=== PATIENT | female | born 1950 | race Caucasian/White ===

== ENCOUNTER 2021-12-05 10:00 | Outpatient (RCR) | payer MEDICARE, BC, SELFPAY | END 2022-10-17 23:59 | disposition home or self-care (01) | PROVIDERS: PCP Family Medicine; Visit Provider Physician Assistant | DX: S72.414D Nondisplaced unspecified condyle fracture of lower end of right femur, subsequent encounter for closed fracture with routine healing (principal); Z51.89 Encounter for other specified aftercare | CPT/HCPCS: 97110; 97161 ==

== ENCOUNTER 2022-01-28 09:04 | Day surgery (SDC) | payer MEDICARE, BC, SELFPAY ==
[2022-01-28] VITALS (20 sets, daily range): BP systolic 98–143; BP diastolic 53–80; PULSE 63–89; RESP 16–18; TEMP 35.2–36.9; O2SAT 89–99; BMI 28.8
[2022-01-28] MEDS: MIDAZOLAM HCL 1 MG/ML inj IVP (07:48)
[2022-01-28] MEDS: LACTATED RINGERS 1000 ML 1,000 ML 100 ML IV (08:00)
[2022-01-28] MEDS: ACETAMINOPHEN 500 MG TABLET 1000 MG PO ×2 (09:30→18:33)
[2022-01-28] MEDS: OXYCODONE (CR) 10 MG TAB.ER.12H PO (09:31)
[2022-01-28] MEDS: CELECOXIB 200 MG CAPSULE PO (09:31)
[2022-01-28] MEDS: fentaNYL 100 MCG/2 ML inj IVP (10:20)
--- NOTE | 2022-01-28 10:30 | SUR.PREOP ---
TIME?OUT:?1022 PT/RN/MDA?VERIFICATION?OF?SURGICAL?SITE,?PROCEDURE,?AND?CONSENT OBTAINED?PRIOR?TO?INVASIVE?PROCEDURE.RIGHT KNEE
--- NOTE | 2022-01-28 10:40 | CRLHL7_ITS ---
For Patients: As a result of the Cures Act, medical imaging exams and procedure reports are released immediately into your electronic medical record. You may view this report before your referring provider. If you have questions, please contact your health care provider. Indication: POST OP RIGHT MILDRED Technique: Two views right knee Findings/Impression: Hardware from a right total knee arthroplasty is in satisfactory position. Bone alignment is normal. No sign of acute fracture. Postop changes are within normal limits. Dictated by Sam Mathis MD @ 01/29/2022 9:02:57 AM (Electronically Signed)
[2022-01-28] MEDS: CEFAZOLIN 2 GM in 0.9 % SODIUM CHLORIDE Mini-bag 100 ML IVPB (10:45)
--- NOTE | 2022-01-28 10:54 | P.NB_ITS ---
Nerve Block Nerve Block Date Seen: 01/28/22 Type of block requested by surgeon for post-operative analgesia: adductor canal Side: right Time out performed: Yes Verification of patient name: Yes Verification of date of : Yes Site marking: site marked Name of person performing procedure: Inderjit De Santiago, if any: Christy Continuous monitoring Was continuous monitoring of O2 sat, B/P, registered nurse cardiac, recorded every 15 minutes?: Yes Procedure Checklist: sterile prep, needles and gloves Ultrasound guided. Images saved: Yes Medications given in 5ml increments after negative aspiration: Ropivicaine %: 0.5 mL: 20 Needle gauge: 20 Decadron (mg): 10 Precedex (mcg): 25 Patient tolerated procedure well: Yes Additional comments: Needle noted adjacent to nerve Block Charges Block Charge (with Pro Fee): Femoral Nerve Use of Ultrasound Machine for Block: Yes- US Guidance/pain block
--- NOTE | 2022-01-28 10:55 | P.NB_ITS ---
Nerve Block Nerve Block Date Seen: 01/28/22 Type of block requested by surgeon for post-operative analgesia: geniculars Side: right Time out performed: Yes Verification of patient name: Yes Verification of date of : Yes Site marking: site marked Name of person performing procedure: Inderjit Continuous monitoring Was continuous monitoring of O2 sat, B/P, cardiac cath lab technologist, recorded every 15 minutes?: Yes Procedure Checklist: sterile prep, needles and gloves Medications given in 5ml increments after negative aspiration: Ropivicaine %: 0.5 mL: 9 Needle gauge: 25 Patient tolerated procedure well: Yes Block Charges Block Charge (with Pro Fee): Genicular Nerve Block Use of Ultrasound Machine for Block: No
--- NOTE | 2022-01-28 12:02 | PM.ORPRC ---
Procedure Note Date of procedure: 01/28/22 Procedure: PREOPERATIVE DIAGNOSIS: 1. Right knee recurrent instability causing multiple falls due to chronic ACL remote tear/deficiency POSTOPERATIVE DIAGNOSIS: 1. Right knee recurrent instability causing multiple falls due to chronic ACL remote tear/deficiency PROCEDURE: 1. Right total knee arthroplasty SURGEON: Onesimo Sandoval MD. MANAGER EMPLOYEE BENEFITS: Abhi Johnson PA-C - Of note, a skilled sales service assistant was critical for this case to aid in patient positioning, tissue retraction, limb manipulation/positioning, and closure. ANESTHESIA: General endotracheal anesthetic IMPLANTS: DePuy J&J all cemented TKA - Attune PS femur size 6 narrow, size 5 tibia, 5 poly spacer, 35 mm patella TOURNIQUET: 90 min at 300 torr EBL: 50 ml COMPLICATIONS: None evident INDICATIONS: The patient is a pleasant 71-year-old female who has experienced severe right knee recurrent instability. This is related to remote ACL tear/deficiency. She has tried extensive nonoperative management including physical therapy, bracing, activity modification, etc. all without great long-term relief. She continues to have recurrent instability to this right knee. This is caused her to fall down stairs and fall while on ground level putting her risk to other injuries. We had a lengthy discussion regarding her findings acknowledging that her arthritis is not extreme, but given the recurrent instability in her age, nonoperative management has failed and thus surgery was indicated. FINDINGS: Complete ACL absence. PCL was intact. Grade 3 chondromalacia medial femoral condyle and medial tibial plateau. Some degenerative medial meniscus tearing noted. No loose bodies evident. DESCRIPTION OF PROCEDURE: Following a thorough discussion of risks, benefits, and alternatives consent was obtained and the right knee was marked. The patient was brought to the operating room and placed supine on the operating table. Induction of anesthesia was undertaken. 1 g IV Ancef and 1 g tranexamic acid was administered within 1 hr of incision preoperatively. Proper time-out was performed identifying proper patient, site, procedure. The operative extremity was prepped and draped in the appropriate sterile fashion using ChloraPrep after the patient was positioned supine with all bony prominences well padded. A longitudinal, anterior, midline skin incision was made starting approximately 3cm proximal to the superior pole of the patella and advanced distal to the tibial tubercle. A median parapatellar arthrotomy was created. A medial subperiosteal sleeve was created with knife, treadwell elevator and curved osteotome. The retropatellar fatpad was resected and the synovium in the suprapatellar pouch excised to visualize the anterior femoral cortex. Femoral preparation was performed via an intramedullary guide. Step drill allowed access into the femoral canal. The distal cutting guide was placed with 6 ? of valgus and 11 mm cut on the distal femur. Femur was sized using a posterior referencing guide in 3? of external rotation. This found have a best fit with the sizing noted above. The 4 in 1 cutting block was then placed, and the distal femur shaped accordingly. The box cut was then created and the trial implant inserted to confirm appropriate fit. We turned our attention to the proximal tibia. Extramedullary guide was utilized for cutting with the goal of being 90 degree cut from the mechanical axis of the tibia in the varus/valgus plane utilizing tibial crest as the primary alignment. Initially a 3 mm resection was performed from the medial tibial plateau. Ultimately, balancing was achieved in both flexion and extension in both varus and valgus. The knee was able to achieve full extension as well comfortably. The patella was initially measured and found have a thickness of 24 mm. It was resected back to approximately 14.5 mm. It was sized to be a best fit with as noted above. This was drilled, trial placed. All trials were placed and found to have an excellent stability and balance. At this stage, trial implants were removed, the knee was thoroughly irrigated with normal saline, and the cement was mixed. After irrigation, the knee was thoroughly dried, and cement placed, with the real tibial and femoral implants placed along with the patella. Trial poly spacer was placed and confirmed to have excellent range of motion and full extension, and the real poly spacer opened and inserted. All extra cement was removed, and a 3 min Betadine soak performed. Finally, a final irrigation round with normal saline was performed. Closure performed with 0 Vicryl and #0 Stratafix for the quad tendon/retinaculum. 2-0 Vicryl for the subcutaneous and 4-0 Stratafix for subcuticular closure. Dressings were applied and the patient was awoken from anesthesia after the tourniquet deflated and transferred the PACU in stable condition. A skilled sales service assistant was critical for this case to aid in patient positioning, tissue retraction, bone exposure, limb manipulation/positioning, patient safety, and closure. PLAN: 1. Weight bear as tolerated operative extremity. 2. 23 hr perioperative antibiotics. 3. Ice. 4. PT/OT consults for ambulation assistance/mobility education. 5. Social work consult for discharge planning. 6. DVT prophylaxis with at SCDs, Kishor Cain, and aspirin twice daily.
--- NOTE | 2022-01-28 12:48 | W.ANESCHARGE ---
Anesthesia Charges Start Date/Time Anesthesia Start Date: 01/28/22 Anesthesia Start Time: 10:34 Stop Date/Time Anesthesia Stop Date: 01/28/22 Anesthesia Stop Time: 12:47 Summary Emergency: No
--- NOTE | 2022-01-28 13:20 | W.ANESCHARGE ---
Anesthesia Charges Start Date/Time Anesthesia Start Date: 01/28/22 Anesthesia Start Time: 10:34 Stop Date/Time Anesthesia Stop Date: 01/28/22 Anesthesia Stop Time: 12:47 Summary Emergency: No Extremes of Age: Over 69-CPT [id number]
[2022-01-28] MEDS: LACTATED RINGERS 1000 ML 1,000 ML 75 ML IV (13:39)
[2022-01-28] MEDS: HYDROmorphone 0.5 mg/0.5 ml inj IVP ×2 (13:45→15:10)
--- NOTE | 2022-01-28 14:45 | PM.IMCN1 ---
Date of Consult Consult date: 01/28/22 Primary Care Provider: Samantha Catalan, Consult Narrative Narrative: Edith Cruz is a 71 year old female who presented to the hospital today for an elective R TKA. There were no surgical or anesthetic complications noted during procedure. Patient's H&P reviewed, PCP is Dr. Catalan at the [facility]. Past medical history significant for: hyperlipidemia and allergic rhinitis. History of blood clots: no Postoperative plan: Home with in [place]. Edith has been for 50+ years, she smoked when younger, quit in her 30s (approximate 10 pack year history). Review of Systems Status of ROS: Reports: 10 or more systems reviewed and unremarkable except as noted in History and below [facility] Medical History (Updated 01/14/22 @ 11:17 by Asia Rodriguez RN) Allergic rhinitis Cholecystitis Colitis due to Clostridioides difficile Diarrhea Elevated cholesterol Pyelonephritis Seborrheic dermatitis, unspecified Sensorineural hearing loss, asymmetrical Varicose veins of both lower extremities Surgical History (Updated 01/28/22 @ 14:48 by Yu Galeana MD) History of bunionectomy of both great toes History of cholecystectomy S/P right knee arthroscopy (01/05/13) Status post laparoscopic appendectomy Total knee replacement status Family History (Updated 01/14/22 @ 11:26 by Asia Rodriguez RN) Father Waldenstroms macroglobulinemia Mother Amyloidosis Social History (Updated 01/14/22 @ 11:30 by Asia Rodriguez RN) Highest level of school completed/degree received: Associate degree: occupational, technical, vocational program Smoking Status: Former smoker What tobacco products do you use: cigarettes Years smoked: 18 Smoking quit date/years: >15 years ago Do you use any of these nicotine containing products: None Nicotine containing products detail: Quit smoking in 1985 Second hand tobacco smoke exposure: No How often do you have a drink containing alcohol: 2-3 times a week Alcohol type: wine How many standard drinks containing alcohol do you have on a typical day: 1 or 2 How often do you have six or more drinks on one occasion: Weekly AUDIT-C Alcohol total score: 6 Non-prescribed substance use: denies use Caffeine: Yes (coffee 1-2 per day, soda 1 can/day) Are you using contraception or practicing any form of control: No service: No Meds Home Medications and Allergies Home Medications Medication Instructions Recorded Confirmed Type atorvastatin 10 mg tablet 10 mg PO HS 01/02/22 01/28/22 History budesonide 32 mcg/actuation nasal 2 spray intranasal DAILY 01/02/22 01/25/22 History spray cetirizine 10 mg tablet 10 mg PO DAILY PRN 01/02/22 01/28/22 History metronidazole 0.75 % topical gel 1 applic topical BID 01/02/22 01/25/22 History multivitamin 1 tab PO DAILY 01/02/22 01/28/22 History ascorbic acid (vitamin C) 500 mg 500 mg PO BID 01/25/22 01/28/22 History capsule,extended release calcium citrate 315 mg-vitamin D3 1 tab PO DAILY 01/25/22 01/28/22 History 5 mcg (200 unit) tablet (Calcium Citrate + D) Allergies Allergy/AdvReac Type Severity Reaction Status Date / Time No Known Drug Allergies Allergy Verified 01/28/22 10:28 Exam Narrative: Exam Narrative: GEN: Alert and oriented, speaking in full sentences, nontoxic in appearance. Laying comfortably in bed HEENT: Normal external ears, EOMIs bilaterally, no scleral icterus CV: RRR, No concerning murmurs, rubs, or gallops R: LCTA bilaterally without concerning wheezing, rales, or rhonchi, air movement adequate Ext: wwp, no concerning edema Skin: No concerning skin lesions or rashes on exposed skin Neuro: Nonfocal Psych: Appropriate Const: Vital Signs, click to edit/add: Vital Signs - 24 hr 01/28/22 10:15 01/28/22 12:50 01/28/22 12:55 Temperature 98.4 F 97.2 F L Pulse Rate 78 63 64 Respiratory Rate 18 16 16 Blood Pressure 143/79 H 106/57 L 98/53 L Pulse Oximetry 96 93 91 Oxygen Delivery Me thod Room Air Room Air Room Air 01/28/22 13:00 01/28/22 13:05 01/28/22 13:10 Temperature Pulse Rate 64 75 69 Respiratory Rate 16 16 16 Blood Pressure 98/54 L 114/70 117/66 Pulse Oximetry 92 96 96 Oxygen Delivery Me thod Room Air Room Air Room Air 01/28/22 13:15 01/28/22 13:20 Temperature Pulse Rate 79 78 Respiratory Rate 16 16 Blood Pressure 120/71 126/73 Pulse Oximetry 96 95 Oxygen Delivery Me thod Room Air Room Air Assessment and Plan Assessment and plan (1) Total knee replacement status: Status: Acute Assessment and Plan: Pain management and prophylaxis per orthopedic surgery team. Stable comorbidities, as noted above. Continue home medications. Hospitalist team will follow throughout stay. (2) Osteoarthritis of right knee: Problem comment: Mild-moderate Status: Acute Plan - per above
[2022-01-28] MEDS: ONDANSETRON 2 MG/ML inj 4 MG IVP ×2 (15:10→18:53)
[2022-01-28] MEDS: CEFAZOLIN 1 GM in 0.9 % SODIUM CHLORIDE Mini-bag 100 ML IVPB (16:29)
--- NOTE | 2022-01-28 19:48 | PC.NURSE ---
shift note: pt returned to rm 259 from pacu via bed. pt drowsy on first arrival. post op vss initiated per protocol. Rt knee drsg c/d/i. cryo cuff on rt knee. cms intact. PP+ bilat. pt using IS to [id number]. LS clr. Pt having pain 3-5/10 in rt knee. pt medicated with dilaudid x2. pt had small clr emesis and received zofran with relief. pt tried to eat supper but had another emesis of 400cc. pt received another dose of prn zofran. family at bedside. IV patent.
[2022-01-29] MEDS: ACETAMINOPHEN 500 MG TABLET 1000 MG PO ×2 (00:15→06:09)
[2022-01-29] MEDS: ONDANSETRON 2 MG/ML inj 4 MG IVP (00:16)
[2022-01-29] MEDS: CEFAZOLIN 1 GM in 0.9 % SODIUM CHLORIDE Mini-bag 100 ML IVPB ×2 (00:25→09:36)
[2022-01-29] MEDS: PROCHLORPERAZINE 5 MG/ML VIAL IVP (02:00)
[2022-01-29] MEDS: HYDROmorphone 2 MG TABLET PO ×3 (02:47→10:12)
[2022-01-29] MEDS: LORazepam 0.5 MG TABLET PO (02:52)
[2022-01-29] MEDS: LACTATED RINGERS 1000 ML 1,000 ML 75 ML IV (02:52)
[2022-01-29 03:00] VITALS: BP 117/64; PULSE 64; RESP 16; TEMP 36.6; O2SAT 99
--- NOTE | 2022-01-29 03:28 | PC.NURSE ---
Shift note 23-: Pt is pleasant. A&O. Afebrile, oxygen saturations >90% on RA. Denies SOB, CP. Pt with intermittent nausea, no emesis this shift, PRN medication given see eMAR. Pt reports some relief, pt able to eat a few crackers. Surgical dressing is C/D/I, CMS intact, cryocuff in place. PRN oral Dilaudid given x1.
[2022-01-29] MEDS: HYDROmorphone 0.5 mg/0.5 ml inj IVP ×2 (06:21→07:19)
[2022-01-29 06:53] LABS: Hematocrit 35.8 % (33.0-51.0); Hemoglobin* 11.3 gm/dL (12.0-16.0); Immature Granulocytes Abs Auto 0.01 K/uL (0.00-0.30); Lymphocytes Percent Auto 10.7 % (20-44); Mean Corpuscular HGB Conc 32 gm/dL (32-36); Mean Corpuscular Hemoglobin 28 pg (26-34); Mean Corpuscular Volume 88 fL (80-100); Monocytes Percent Auto 9.3 % (0.0-11.0); Neutrophils Percent Auto 79.9 % (42.0-72.0); Platelet Count* 627 K/uL (140-440); RDW Coefficient of Variation % 12.8 % (11.5-15.5); Red Blood Count 4.06 m/uL (4.00-5.20)
[2022-01-29 06:55] LABS: Slide Review Reflex No
[2022-01-29 07:00] VITALS: BP 119/64; PULSE 69; RESP 12; TEMP 36.6; O2SAT 97
[2022-01-29 07:15] LABS: Potassium* 4.7 mmol/L (3.6-5.1); Sodium* 140 mmol/L (135-149)
[2022-01-29 07:18] LABS: Blood Urea Nitrogen* 15 mg/dL (7-30); Creatinine* 0.8 mg/dL (0.5-1.5); Est. Creatinine Clearance* 42.07; Estimated Glomerular Filt Rate 78 ml/min
--- NOTE | 2022-01-29 08:02 | PM.ORPN ---
Subjective Subjective Date Seen: 01/29/22 Principal diagnosis: Status postop day 1 right total knee arthroplasty Interval history: Patient reports doing well. Acute events overnight include nausea and vomiting; patient states that this is common for her postoperatively, with her most recent appendectomy surgery 1 year ago experiencing similar postoperative nausea/vomiting. Today, the nausea has subsided remarkably and she is able to tolerate small amounts of food. She plans to eat breakfast this morning. Pain managed with scheduled /PRN medications and ice. DVT prophylaxis 81 mg aspirin by mouth twice daily, bilateral knee high Kishor stockings, and SCDs. Denies fevers, chills, aches, N/V, CP, SOB/SHEPHERD, tachycardia, or lightheadedness. Ortho Exam Narrative Exam Narrative: -Patient appears comfortable; no apparent acute distress. She is just waking up. Reports having a good night of sleep -Alert and oriented times 3 -Operative knee mildly swollen; soft tissues supple; no ecchymosis; no erythematous streaking Warmth appropriate -Surgical dressing clean, dry, intact; no drainage -Bilateral calfs soft; no significant swelling, edema, tenderness, erythema, discoloration, warmth, or palpable cords -2+ DP/PT pulses, intact dermatomes and myotomes distally (5/5 strength) Const Vital Signs, click to edit/add: Vital Signs - 24 hr 01/28/22 10:15 01/28/22 12:50 01/28/22 12:55 Temperature 98.4 F 97.2 F L Pulse Rate 78 63 64 Pulse Rate [Right Pulse Oximeter] Respiratory Rate 18 16 16 Blood Pressure 143/79 H 106/57 L 98/53 L Blood Pressure [Left Arm] Pulse Oximetry 96 93 91 Oxygen Delivery Method Room Air Room Air Room Air 01/28/22 13:00 01/28/22 13:05 01/28/22 13:10 Temperature Pulse Rate 64 75 69 Pulse Rate [Right Pulse Oximeter] Respiratory Rate 16 16 16 Blood Pressure 98/54 L 114/70 117/66 Blood Pressure [Left Arm] Pulse Oximetry 92 96 96 Oxygen Delivery Method Room Air Room Air Room Air 01/28/22 13:15 01/28/22 13:20 01/28/22 14:42 Temperature 95.8 F L Pulse Rate 79 78 Pulse Rate [Right Pulse Oximeter] 89 Respiratory Rate 16 16 18 Blood Pressure 120/71 126/73 Blood Pressure [Left Arm] 140/80 H Pulse Oximetry 96 95 95 Oxygen Delivery Method Room Air Room Air Room Air 01/28/22 13:30 01/28/22 13:30 01/28/22 14:00 Temperature 95.8 F L 95.8 F L 95.8 F L Pulse Rate 78 Pulse Rate [Right Pulse Oximeter] 89 80 Respiratory Rate 18 18 16 Blood Pressure Blood Pressure [Left Arm] 140/80 H 140/80 H 129/70 Pulse Oximetry 95 99 Oxygen Delivery Method Room Air Room Air Room Air 01/28/22 13:45 01/28/22 14:15 01/28/22 14:30 Temperature 95.4 F L 95.8 F L 95.8 F L Pulse Rate Pulse Rate [Right Pulse Oximeter] 78 77 77 Respiratory Rate 16 16 16 Blood Pressure Blood Pressure [Left Arm] 131/67 127/75 124/64 Pulse Oximetry 99 92 92 Oxygen Delivery Method Room Air Room Air Room Air 01/28/22 15:00 01/28/22 15:30 01/28/22 16:30 Temperature 95.9 F L 97.1 F L 97.1 F L Pulse Rate Pulse Rate [Right Pulse Oximeter] 79 79 74 Respiratory Rate 16 18 18 Blood Pressure Blood Pressure [Left Arm] 118/66 131/74 120/70 Pulse Oximetry 92 92 92 Oxygen Delivery Method Room Air Room Air Room Air 01/28/22 17:30 01/28/22 18:30 01/28/22 23:00 Temperature 97.1 F L 97.2 F L Pulse Rate Pulse Rate [Right Pulse Oximeter] 77 70 75 Respiratory Rate 18 18 Blood Pressure Blood Pressure [Left Arm] 116/64 109/60 Pulse Oximetry 89 97 Oxygen Delivery Method Room Air Room Air 01/28/22 23:00 01/29/22 03:00 Temperature 97.5 F L 97.8 F Pulse Rate Pulse Rate [Right Pulse Oximeter] 75 64 Respiratory Rate 18 16 Blood Pressure Blood Pressure [Left Arm] 130/63 117/64 Pulse Oximetry 91 99 Oxygen Delivery Method Room Air Room Air Assessment and Plan Assessment and plan (1) Total knee replacement status: Problem details: POD 1 right total knee arthroplasty Status: Acute (2) Chronic instability of knee, right knee: Status: Acute (3) Osteoarthritis of right knee: Problem details: Mild-moderate Status: Acute Plan - Complete 23 hour perioperative antibiotics. - PT/OT consult for education and assistance. - Social work consult for discharge planning - Prescribed analgesics as needed - oral hydromorphone - DVT prophylaxis: 81 mg aspirin by mouth twice daily, bilateral knee high Kishor Hose stockings and SCDs - Anticipation is for discharge to home with spouse 01/29/2022 if the patient remains medically stable, pain is controlled, and they are safe with mobilization.
--- NOTE | 2022-01-29 08:06 | P.DS_ITS ---
DS: Providers Provider Date Seen: 01/29/22 Date of admission: med/surg recovery Primary care physician: Samantha Catalan DO Consults: 01/28/22 13:22 Consult to Occupational Therapy [CONS] Routine Comment: Reason(s) for OT Consult:: ADLs Prior to Discharge Any Restrictions?:: See Comment Comment: See nursing activity order for any restrictions. Consult to Physical Therapy [CONS] Routine Comment: Ambulate in the ball today. Reason(s) for PT Consult:: TKA TX Protocol POD#0 Any Restrictions?:: See Comment Comment: See nursing activity order for any restrictions. Consult to Physician [CONS] Routine Comment: Consulting Provider: Hospitalists Has provider been notified: No Consult to Sports Equipment Supervisor [CONS] Routine Comment: Reason for Consult:: Discharge Planning Needs Attending Physician on discharge: Onesimo Sandoval MD Date of Discharge: 01/29/22 DS: Diagnosis Discharge Diagnosis (1) Chronic instability of knee, right knee: Status: Acute (2) Total knee replacement status: Status: Acute Problem details: POD 1 right total knee arthroplasty DS: Summary Hospital Course Hospital Course: The patient has a history of right knee chronic ACL deficiency, mild osteoarthritis. After appropriate preoperative evaluation, the patient underwent right total knee arthroplasty. Postoperatively given anticoagulation for deep vein thrombosis prophylaxis. They progressed to PT/OT and were felt ready and prepared for discharge to home with appropriate pain medication and anticoagulation medications. Postoperative nausea and vomiting improved. Status at Discharge Functional status at discharge: uses cane/walker Overall status at discharge: patient is progressing back to baseline Time Spent with Patient Time attestation: Total time spent providing and/or coordinating discharge services: Time spent: Less than 30 minutes Exam Const: Vital Signs, click to edit/add: Vital Signs - 24 hr 01/28/22 10:15 01/28/22 12:50 01/28/22 12:55 Temperature 98.4 F 97.2 F L Pulse Rate 78 63 64 Pulse Rate [Right Pulse Oximeter] Respiratory Rate 18 16 16 Blood Pressure 143/79 H 106/57 L 98/53 L Blood Pressure [Le ft Arm] Pulse Oximetry 96 93 91 Oxygen Delivery Me thod Room Air Room Air Room Air 01/28/22 13:00 01/28/22 13:05 01/28/22 13:10 Temperature Pulse Rate 64 75 69 Pulse Rate [Right Pulse Oximeter] Respiratory Rate 16 16 16 Blood Pressure 98/54 L 114/70 117/66 Blood Pressure [Le ft Arm] Pulse Oximetry 92 96 96 Oxygen Delivery Me thod Room Air Room Air Room Air 01/28/22 13:15 01/28/22 13:20 01/28/22 14:42 Temperature 95.8 F L Pulse Rate 79 78 Pulse Rate [Right Pulse Oximeter] 89 Respiratory Rate 16 16 18 Blood Pressure 120/71 126/73 Blood Pressure [Le ft Arm] 140/80 H Pulse Oximetry 96 95 95 Oxygen Delivery Me thod Room Air Room Air Room Air 01/28/22 13:30 01/28/22 13:30 01/28/22 14:00 Temperature 95.8 F L 95.8 F L 95.8 F L Pulse Rate 78 Pulse Rate [Right Pulse Oximeter] 89 80 Respiratory Rate 18 18 16 Blood Pressure Blood Pressure [Le ft Arm] 140/80 H 140/80 H 129/70 Pulse Oximetry 95 99 Oxygen Delivery Me thod Room Air Room Air Room Air 01/28/22 13:45 01/28/22 14:15 01/28/22 14:30 Temperature 95.4 F L 95.8 F L 95.8 F L Pulse Rate Pulse Rate [Right Pulse Oximeter] 78 77 77 Respiratory Rate 16 16 16 Blood Pressure Blood Pressure [Le ft Arm] 131/67 127/75 124/64 Pulse Oximetry 99 92 92 Oxygen Delivery Me thod Room Air Room Air Room Air 01/28/22 15:00 01/28/22 15:30 01/28/22 16:30 Temperature 95.9 F L 97.1 F L 97.1 F L Pulse Rate Pulse Rate [Right Pulse Oximeter] 79 79 74 Respiratory Rate 16 18 18 Blood Pressure Blood Pressure [Le ft Arm] 118/66 131/74 120/70 Pulse Oximetry 92 92 92 Oxygen Delivery Me thod Room Air Room Air Room Air 01/28/22 17:30 01/28/22 18:30 01/28/22 23:00 Temperature 97.1 F L 97.2 F L Pulse Rate Pulse Rate [Right Pulse Oximeter] 77 70 75 Respiratory Rate 18 18 Blood Pressure Blood Pressure [Le ft Arm] 116/64 109/60 Pulse Oximetry 89 97 Oxygen Delivery Me thod Room Air Room Air 01/28/22 23:00 01/29/22 03:00 Temperature 97.5 F L 97.8 F Pulse Rate Pulse Rate [Right Pulse Oximeter] 75 64 Respiratory Rate 18 16 Blood Pressure Blood Pressure [Le ft Arm] 130/63 117/64 Pulse Oximetry 91 99 Oxygen Delivery Me thod Room Air Room Air DS: Data Data Completed and Pending Labs on day of discharge: Labs from last 24 hours 01/29/22 01/29/22 06:26 06:26 WBC 8.90 RBC 4.06 Hgb 11.3 L Hct 35.8 MCV 88 MCH 28 MCHC 32 RDW Coeff of Robert 12.8 Plt Count 627 H Neut % (Auto) 79.9 H Lymph % (Auto) 10.7 L [place] % (Auto) 9.3 Eos % (Auto) 0.0 Baso % (Auto) 0.0 Neut # (Auto) 7.10 H Lymph # (Auto) 1.00 [place] # (Auto) 0.80 Eos # (Auto) 0.00 Baso # (Auto) 0.00 Abs Immat Gran (auto) 0.01 Sodium 140 Potassium 4.7 BUN 15 Creatinine 0.8 Estimated Creat Clear 42.07 Estimated GFR 78 Discharge Plan Discharge Disposition: Home, Self-Care Discharging Surgeon: Onesimo Sandoval Follow-Up Appointment: 1 week PO with MADELAINE Prescriptions: New aspirin 81 mg tablet,delayed release (DR/EC) 81 mg PO BID Qty: 60 0RF Rx Instructions: Medication to help prevent blood clots postoperatively; take TWICE daily. celecoxib 100 mg capsule 100 mg PO BID Qty: 60 0RF acetaminophen 500 mg capsule 500 - 1,000 mg PO Q6H MDD 4000mg PRNQty: 100 0RF sennosides-docusate sodium [Senna-S] 8.6-50 mg tablet 1 - 4 tab-cap PO BID PRN (Reason: constipation) Qty: 60 0RF Rx Instructions: Hold medication if experiencing loose stools. hydromorphone 2 mg tablet 2 - 4 mg PO Q4-6H MDD 6 PRN (Reason: pain) Qty: 30 0RF No Action atorvastatin 10 mg tablet 10 mg PO HS budesonide 32 mcg/actuation spray,non-aerosol 2 spray intranasal DAILY Label Comments: INSTILL 2 SPRAYS TO BOTH NOSTRILS ONCE DAILY metronidazole 0.75 % gel 1 applic topical BID multivitamin Tablet 1 tab PO DAILY cetirizine 10 mg tablet 10 mg PO DAILY PRN calcium citrate-vitamin D3 [Calcium Citrate + D] 315 mg-5 mcg (200 unit) tablet 1 tab PO DAILY ascorbic acid (vitamin C) 500 mg capsule, extended release 500 mg PO BID Activity Level: Activity as Tolerated, Weight Bearing as Tolerated, Use Cane and Use Walker Discharge Diet: Regular Patient Instructions: Surgical Site Infections (DC) Additional Instructions: Wound: ?Do not remove original dressing; we will remove this at first postop visit in 1 week. Only remove dressing if integrity is in question. ?No immersing wound in water; showering okay; light scrub with your hand and body soap, rinse, dab dry ?Sutures are under the skin, will dissolve; allow surgical glue to come off naturally; do not scrub the wound or apply ointments/lotions ?Call our office with any redness that streaks, excessive drainage from the wound, or wound gapping. Ice/Elevate: ?Ice as needed for swelling and discomfort (cryocuff or ice pack); elevate frequently above the heart CORONA socks: ?Wear for 1 month, remove for 1 hour 3 times per day ?These are frustrating to take on/off, but are important for blood clot prevention for 1 month after surgery Blood Clot Prevention (DVT): ?Medication: 81 mg aspirin by mouth twice daily (1 month) Driving: ?Do not drive while taking narcotic pain medication ?Anticipate 4-6 weeks no driving if operative leg is driving leg Dental: ?No elective dental work for 6 months post-op. If there is an urgent/emergent dental need, contact our office for an antibiotic prescription. Smoking/Alcohol: ?Do not smoke; do no drink alcohol especially when taking postoperative oral narcotic medication Seek Care from you Primary Care Provider if you experience the following issues in the postoperative phase and beyond: ?Bacterial infections such as: pneumonia, bacterial skin infection (cellulitis), UTI, high fever, chills unrelated to the operative body part - call your primary care physician urgently for treatment in hopes to protect your health and the metal implant. Referrals: ?PT, OT per patient preference - evaluate treat total knee arthroplasty protocol (gait training, ROM, ADLs) Follow up: ?Ortho surgeon follow-up in 6 weeks; repeat radiographs three views operative knee ?PA-C visit in 1 week *If there are any acute concerns regarding your surgery, please call our orthopedic clinic ([phone]) Forms: Work/Release Restrictions Follow-up: Samantha Catalan DO [Primary Care Provider] - Discharge Orders: Discharge Order (Routine); Ordered 01/29/22 Ordered By: Abhi Johnson
[2022-01-29] MEDS: CELECOXIB 200 MG CAPSULE PO (09:30)
[2022-01-29] MEDS: SENNOSIDES 1 TAB TABLET 2 TAB PO (09:31)
[2022-01-29] MEDS: ASPIRIN 81 MG TABLET EC PO (09:32)
--- NOTE | 2022-01-29 09:48 | P.DS_ITS ---
DS: Providers Provider Date Seen: 01/29/22 Primary care physician: Samantha Catalan DO Consults: PT, OT, SW, Hospitalist Attending Physician on discharge: Onesimo Sandoval MD Date of Discharge: 01/29/22 DS: Diagnosis Discharge Diagnosis (1) Total knee replacement status: Status: Acute Problem details: POD 1 right total knee arthroplasty DS: Summary Hospital Course Hospital Course: Edith is a 71-year-old female who presented to the hospital for an elective right TKA on 01/28. Patient did well postoperatively and comorbidities remained stable. She did have some nausea with narcotics; sent home Compazine, which was effective during hospital stay. No changes were made to home medications upon discharge. Prophylaxis and pain management per Orthopedic surgery team upon discharge. Patient will be discharged home with routine follow-up with therapies, orthopedic surgery, and PCP. Time Spent with Patient Time attestation: Total time spent providing and/or coordinating discharge services: Exam Narrative: Exam Narrative: GEN: Alert and oriented, speaking in full sentences HEENT: Normal external ears, EOMIs bilaterally CV: RRR, No concerning murmurs, rubs, or gallops R: LCTA bilaterally without concerning wheezing, rales, or rhonchi Ext: wwp, no concerning edema Skin: No concerning skin lesions or rashes on exposed skin Neuro: Nonfocal Psych: Appropriate Const: Vital Signs, click to edit/add: Vital Signs - 24 hr 01/28/22 10:15 01/28/22 12:50 01/28/22 12:55 Temperature 98.4 F 97.2 F L Pulse Rate 78 63 64 Pulse Rate [Right Pulse Oximeter] Respiratory Rate 18 16 16 Blood Pressure 143/79 H 106/57 L 98/53 L Blood Pressure [Le ft Arm] Pulse Oximetry 96 93 91 Oxygen Delivery Me thod Room Air Room Air Room Air 01/28/22 13:00 01/28/22 13:05 01/28/22 13:10 Temperature Pulse Rate 64 75 69 Pulse Rate [Right Pulse Oximeter] Respiratory Rate 16 16 16 Blood Pressure 98/54 L 114/70 117/66 Blood Pressure [Le ft Arm] Pulse Oximetry 92 96 96 Oxygen Delivery Me thod Room Air Room Air Room Air 01/28/22 13:15 01/28/22 13:20 01/28/22 14:42 Temperature 95.8 F L Pulse Rate 79 78 Pulse Rate [Right Pulse Oximeter] 89 Respiratory Rate 16 16 18 Blood Pressure 120/71 126/73 Blood Pressure [Le ft Arm] 140/80 H Pulse Oximetry 96 95 95 Oxygen Delivery Me thod Room Air Room Air Room Air 01/28/22 13:30 01/28/22 13:30 01/28/22 14:00 Temperature 95.8 F L 95.8 F L 95.8 F L Pulse Rate 78 Pulse Rate [Right Pulse Oximeter] 89 80 Respiratory Rate 18 18 16 Blood Pressure Blood Pressure [Le ft Arm] 140/80 H 140/80 H 129/70 Pulse Oximetry 95 99 Oxygen Delivery Me thod Room Air Room Air Room Air 01/28/22 13:45 01/28/22 14:15 01/28/22 14:30 Temperature 95.4 F L 95.8 F L 95.8 F L Pulse Rate Pulse Rate [Right Pulse Oximeter] 78 77 77 Respiratory Rate 16 16 16 Blood Pressure Blood Pressure [Le ft Arm] 131/67 127/75 124/64 Pulse Oximetry 99 92 92 Oxygen Delivery Me thod Room Air Room Air Room Air 01/28/22 15:00 01/28/22 15:30 01/28/22 16:30 Temperature 95.9 F L 97.1 F L 97.1 F L Pulse Rate Pulse Rate [Right Pulse Oximeter] 79 79 74 Respiratory Rate 16 18 18 Blood Pressure Blood Pressure [Le ft Arm] 118/66 131/74 120/70 Pulse Oximetry 92 92 92 Oxygen Delivery Me thod Room Air Room Air Room Air 01/28/22 17:30 01/28/22 18:30 01/28/22 23:00 Temperature 97.1 F L 97.2 F L Pulse Rate Pulse Rate [Right Pulse Oximeter] 77 70 75 Respiratory Rate 18 18 Blood Pressure Blood Pressure [Le ft Arm] 116/64 109/60 Pulse Oximetry 89 97 Oxygen Delivery Me thod Room Air Room Air 01/28/22 23:00 01/29/22 03:00 01/29/22 07:00 Temperature 97.5 F L 97.8 F Pulse Rate Pulse Rate [Right Pulse Oximeter] 75 64 69 Respiratory Rate 18 16 12 Blood Pressure Blood Pressure [Le ft Arm] 130/63 117/64 Pulse Oximetry 91 99 Oxygen Delivery Me thod Room Air Room Air 01/29/22 07:00 Temperature 97.8 F Pulse Rate Pulse Rate [Right Pulse Oximeter] 69 Respiratory Rate 12 Blood Pressure Blood Pressure [Le ft Arm] 119/64 Pulse Oximetry 97 Oxygen Delivery Me thod Room Air DS: Data Data Completed and Pending Labs on day of discharge: Labs from last 24 hours 01/29/22 01/29/22 06:26 06:26 WBC 8.90 RBC 4.06 Hgb 11.3 L Hct 35.8 MCV 88 MCH 28 MCHC 32 RDW Coeff of Robert 12.8 Plt Count 627 H Neut % (Auto) 79.9 H Lymph % (Auto) 10.7 L [place] % (Auto) 9.3 Eos % (Auto) 0.0 Baso % (Auto) 0.0 Neut # (Auto) 7.10 H Lymph # (Auto) 1.00 [place] # (Auto) 0.80 Eos # (Auto) 0.00 Baso # (Auto) 0.00 Abs Immat Gran (auto) 0.01 Sodium 140 Potassium 4.7 BUN 15 Creatinine 0.8 Estimated Creat Clear 42.07 Estimated GFR 78 Discharge Plan Discharge Disposition: Home, Self-Care Discharging Surgeon: Onesimo Sandoval Follow-Up Appointment: 1 week PO with MADELAINE Prescriptions: New aspirin 81 mg tablet,delayed release (DR/EC) 81 mg PO BID Qty: 60 0RF Rx Instructions: Medication to help prevent blood clots postoperatively; take TWICE daily. celecoxib 100 mg capsule 100 mg PO BID Qty: 60 0RF acetaminophen 500 mg capsule 500 - 1,000 mg PO Q6H MDD 4000mg PRNQty: 100 0RF sennosides-docusate sodium [Senna-S] 8.6-50 mg tablet 1 - 4 tab-cap PO BID PRN (Reason: constipation) Qty: 60 0RF Rx Instructions: Hold medication if experiencing loose stools. hydromorphone 2 mg tablet 2 - 4 mg PO Q4-6H MDD 6 PRN (Reason: pain) Qty: 30 0RF prochlorperazine maleate [Compazine] 5 mg tablet 5 mg PO BID PRNQty: 10 0RF Rx Instructions: prn nausea with pain meds No Action atorvastatin 10 mg tablet 10 mg PO HS budesonide 32 mcg/actuation spray,non-aerosol 2 spray intranasal DAILY Label Comments: INSTILL 2 SPRAYS TO BOTH NOSTRILS ONCE DAILY metronidazole 0.75 % gel 1 applic topical BID multivitamin Tablet 1 tab PO DAILY cetirizine 10 mg tablet 10 mg PO DAILY PRN calcium citrate-vitamin D3 [Calcium Citrate + D] 315 mg-5 mcg (200 unit) tablet 1 tab PO DAILY ascorbic acid (vitamin C) 500 mg capsule, extended release 500 mg PO BID Activity Level: Activity as Tolerated, Weight Bearing as Tolerated, Use Cane and Use Walker Discharge Diet: Regular Patient Instructions: Surgical Site Infections (DC) Additional Instructions: Wound: ?Do not remove original dressing; we will remove this at first postop visit in 1 week. Only remove dressing if integrity is in question. ?No immersing wound in water; showering okay; light scrub with your hand and body soap, rinse, dab dry ?Sutures are under the skin, will dissolve; allow surgical glue to come off naturally; do not scrub the wound or apply ointments/lotions ?Call our office with any redness that streaks, excessive drainage from the wound, or wound gapping. Ice/Elevate: ?Ice as needed for swelling and discomfort (cryocuff or ice pack); elevate frequently above the heart CORONA socks: ?Wear for 1 month, remove for 1 hour 3 times per day ?These are frustrating to take on/off, but are important for blood clot prevention for 1 month after surgery Blood Clot Prevention (DVT): ?Medication: 81 mg aspirin by mouth twice daily (1 month) Driving: ?Do not drive while taking narcotic pain medication ?Anticipate 4-6 weeks no driving if operative leg is driving leg Dental: ?No elective dental work for 6 months post-op. If there is an urgent/emergent dental need, contact our office for an antibiotic prescription. Smoking/Alcohol: ?Do not smoke; do no drink alcohol especially when taking postoperative oral narcotic medication Seek Care from you Primary Care Provider if you experience the following issues in the postoperative phase and beyond: ?Bacterial infections such as: pneumonia, bacterial skin infection (cellulitis), UTI, high fever, chills unrelated to the operative body part - call your primary care physician urgently for treatment in hopes to protect your health and the metal implant. Referrals: ?PT, OT per patient preference - evaluate treat total knee arthroplasty protocol (gait training, ROM, ADLs) Follow up: ?Ortho surgeon follow-up in 6 weeks; repeat radiographs three views operative knee ?MADELAINE visit in 1 week *If there are any acute concerns regarding your surgery, please call our orthopedic clinic ([phone]) Forms: Work/Release Restrictions Follow-up: Samantha Catalan DO [Primary Care Provider] - Abhi Johnson PA-C [Physician Employee Health Nurse] - 02/05/22 2:00 pm (At the [facility]& location. [phone]) Discharge Orders: Discharge Order (Routine); Ordered 01/29/22 Ordered By: Abhi Johnson
--- NOTE | 2022-01-29 12:06 | PC.NURSE ---
End of Shift: Patient pleasant and cooperative. Patient vitally stable, lungs clear, BS WNL, IV removed, catheter intact. Patient nausea has improved. Patient 1 assist, walker, gb. Patient rates pain at most 3/10, dilauded 4mg given once. Patient tolerating regular diet and urinating. Patient signed belongings sheet and discharge form. Patient had no further questions regarding discharge. Patient left the floor at 1112 by wheelchair with family and belongings.
== END 2022-01-29 11:12 | disposition home or self-care (01) ==
LOC: OR 09:05 → MEDSURG 01-29 05:13
PROVIDERS: PCP Family Medicine; Visit Provider Orthopaedic Surgery Sports Medicine
PROC: (CPT 27447; principal; 2022-01-28 10:45)
DX: M23.51 Chronic instability of knee, right knee (principal); M23.8X1 Other internal derangements of right knee; M94.261 Chondromalacia, right knee; M17.11 Unilateral primary osteoarthritis, right knee; M25.561 Pain in right knee
CPT/HCPCS: 27447; 01402; 36415; 64447; 64454; 73560; 76942; 82565; 84132; 84295; 84520; 85025; 97116; 97161; 97165; 97535; 99100; A9270; C1776; J0330; J0690; J0780; J1100; J1170; J2250; J2405; J2704; J2795; J3010; J7120

== ENCOUNTER 2022-03-05 10:30 | Outpatient (RCR) | payer MEDICARE, BC, SELFPAY ==
--- NOTE | 2022-01-14 16:34 | PT.OPEX ---
PT [place] Outpatient Eval PT [facility] Outpatient Eval Start: 01/14/22 09:55 Freq: Status: Active Protocol: Document 01/14/22 13:56 SLIME (Rec: 01/14/22 14:13 SLIME [id number]) E-signed By Ben Goddard PT Physical Therapy Outpatient Evaluation Insurance Information Insurance Name Medicare B,Blue Cross/Blue Shield Medical Diagnosis Right knee OA Treating Diagnosis Right knee instability Right quad weakness Referring MD Sandoval Subjective Subjective Pt. reports having worsening right knee instability symptoms with a fall in August sustaining an impaction fracture. She has tried to strengthen her knee with therapy but it continues to give out on her. She will be having a knee TKA on 01/28/22 and plans on coming her for her therapy afterwards. She lives with her in a split level home. She doesn't have any adaptive equipment in her home currently. She has full knee ROM with good but not normal strength in quad. She has never used an assistive device for ambulation but she needs to get a wheeled walker and a cane to have after surgery. Good overall health. Pain Comments none currently Date of Last Physician Visit 01/08/22 Date of Surgery (If applicable) 01/28/22 Current Work Status Retired Preferred Name Edith Objective Range of Motion Normal bilat. knee Strength 4/5 quad strength right Swelling none Balance & Gait WNL Assessment Assessment/Impression Objectively, pt. demonstrates; mild gait asymmetry with guarding of right knee; normal right knee AROM equal to left ; 4/5 right quad strength with mild weakness; normal hamstring strength; mild core deconditioning; and no apparent swelling of right LE. She will benefit from performing the pre-op exercise protocol prior to surgery. She will then benefit from skilled therapy after her surgery on 01/28/22 working on TKA protocol. Primary Functional Limitations walking, steps, hiking Plan of Care Rehabilitation Potential Excellent Physical Therapy Goals 1. Pt. will be indep. with HEP for self maintenance in 10-12 weeks 2. Pt. will be able to walk without an assistive device in 10-12 weeks 3. Pt. will demonstrate good quad strength for functional transfers in 10-12 weeks. 4. Pt. will demonstrate functional knee AROM with 115 degrees plus flexion with full extension for ADL's in 10-12 weeks. Coordination/Communication With Referral Source Treatment Plan/Direct Interventions Gait Training,Joint Mobilization,Manual Therapy, Neuromuscular Re-ed, Therapeutic Activities, Therapeutic Exercises Frequency/Duration one pre-op visit with re-eval and continued therapy S/P TKA. Patient Will Be Discharged From Therapy Independent w/HEP, Independently Progressing Evaluation Billing Complexity Low Certification Information Initial Certification Date 01/14/22 Ending Certification Date 04/08/22 Provider Signature Shows Agreement With POC & Medical Necessity Physician Signature & Date Requested Please Sign/Date Here Physician Comment/Change : Physician NPI Number #
== END 2022-03-05 13:14 | disposition home or self-care (01) ==
PROVIDERS: PCP Family Medicine; Visit Provider Orthopaedic Surgery Sports Medicine
DX: M17.11 Unilateral primary osteoarthritis, right knee (principal); Z51.89 Encounter for other specified aftercare
CPT/HCPCS: 97110; 97140; 97161; 97164

== ENCOUNTER 2024-03-10 17:26 | Inpatient (IN) | payer MEDICARE, BC, SELFPAY ==
[2024-03-10] VITALS (13 sets, daily range): BP systolic 102–115; BP diastolic 57–60; PULSE 77–105; RESP 18; TEMP 36.8–38.3; O2SAT 93–96; BMI 26.6; BMI 26.8
--- NOTE | 2024-03-10 18:45 | ED_ITS ---
HPI - General Adult General Date Seen: 03/10/24 Chief complaint: Abdominal Pain Stated complaint: Pain in Lower R abdominal quadrant, temp Time Seen by Provider: 03/10/24 18:21 History of Present Illness HPI narrative: 73-year-old female with a past medical history cholecystectomy, appendectomy, high cholesterol, history of pyelonephritis, history of C diff colitis, hearing loss, Presents to the ER today for right upper quadrant abdominal pain. Started befor e she woke up this morning. It started before breakfast and woke her up from sleep. She has been nauseous all day. No diarrhea. No trouble with bowel movements. She has also been having fevers and chills and body aches all day. No cough. No trouble breathing. No diarrhea. She has a history of C diff but no symptoms similar to that. No recent antibiotics. She has had previous cholecystectomy and appendectomy. Her right upper quadrant pain sometimes flares up and radiates through to her right flank. No clear exacerbating or alleviating symptoms. She had some urinary frequency earlier this week but is not having any ongoing urinary symptoms today. She politely declines any offered pain medications here in the ER. Related Data Home Medications ?Medication ?Instructions ?Recorded ?Confirmed atorvastatin 10 mg tablet 10 mg PO HS 01/02/22 03/10/24 metronidazole 0.75 % topical gel 1 applic topical BID 01/02/22 03/10/24 multivitamin 1 tab PO DAILY 01/02/22 03/10/24 calcium 315 mg (as 1 tab PO DAILY 01/25/22 03/10/24 citrate)-vitamin D3 5 mcg (200 unit) tablet (Calcium Citrate + D) Allergies Allergy/AdvReac Type Severity Reaction Status Date / Time No Known Drug Allergies Allergy Verified 03/10/24 17:52 [facility] Medical History (Updated 03/10/24 @ 21:44 by Manuel Moore MD) Health care directive on file ?Z78.9 - Other specified health status (ICD-10) Cholecystitis ?K81.9 - Cholecystitis, unspecified (ICD-10) Varicose veins of both lower extremities ?I83.93 - Asymptomatic varicose veins of bilateral lower extremities (ICD-10) Seborrheic dermatitis, unspecified ?L21.9 - Seborrheic dermatitis, unspecified (ICD-10) Sensorineural hearing loss, asymmetrical ?H90.3 - Sensorineural hearing loss, bilateral (ICD-10) Allergic rhinitis ?J30.9 - Allergic rhinitis, unspecified (ICD-10) Elevated cholesterol ?E78.00 - Pure hypercholesterolemia, unspecified (ICD-10) Pyelonephritis ?N12 - Tubulo-interstitial nephritis, not specified as acute or chronic (ICD- 10) Diarrhea ?R19.7 - Diarrhea, unspecified (ICD-10) Colitis due to Clostridioides difficile ?A04.72 - Enterocolitis due to Clostridium difficile, not specified as recurrent (ICD-10) Surgical History (Updated 07/23/22 @ 08:50 by Lucy Bar ~ [facility]) Total knee replacement status (01/28/22) ?Z96.659 - Presence of unspecified artificial knee joint (ICD-10) History of cholecystectomy ?Z90.49 - Acquired absence of other specified parts of digestive tract (ICD- 10) History of bunionectomy of both great toes ?Z98.890 - Other specified postprocedural states (ICD-10) S/P right knee arthroscopy (01/05/13) ?Z98.890 - Other specified postprocedural states (ICD-10) Status post laparoscopic appendectomy ?Z90.49 - Acquired absence of other specified parts of digestive tract (ICD- 10) Family History Father Waldenstroms macroglobulinemia Mother Amyloidosis Social History (Reviewed 07/23/22 @ 08:50 by Lucy Bar ~ [facility]) Highest level of school completed/degree received: Associate degree: occupational, technical, vocational program Smoking Status: Former smoker What tobacco products do you use: cigarettes Years smoked: 18 Smoking quit date/years: >15 years ago Do you use any of these nicotine containing products: None Nicotine containing products detail: Quit smoking in 1985 Second hand tobacco smoke exposure: No How often do you have a drink containing alcohol: never How many standard drinks containing alcohol do you have on a typical day: 1 or 2 How often do you have six or more drinks on one occasion: Never AUDIT-C Alcohol total score: 0 Non-prescribed substance use: denies use Caffeine: Yes (coffee 1-2 per day, soda 1 can/day) Are you using contraception or practicing any form of control: No service: No Exam Narrative: Exam Narrative: Constitutional: Appears well-developed and well-nourished. Alert. Conversant. Non toxic. HENT: Head: Atraumatic. Nose: Nose normal. Mouth/Throat: Oral mucosa is clear and moist. no trismus. Pharynx normal. Tonsils symmetric. No tonsillar enlargement, erythema, or exudate. Eyes: Conjunctivae normal. EOM normal. Pupils equal, round, and reactive to light. No scleral icterus. Neck: Normal range of motion. Neck supple. No tracheal deviation present. No meningismus. Cardiovascular: Normal rate, regular rhythm. No gallop. No friction rub. No murmur heard. Symmetric radial artery pulses Pulmonary/Chest: Effort normal. No stridor. No respiratory distress. No wheezes. Right basilar rales and rhonchi. No tenderness. Abdominal: Soft. Bowel sounds normal. No distension. No mass. Right upper quadrant > right CVA tenderness. Negative Quiros sign. No hepatomegaly. No lower abdominal tenderness. No left-sided tenderness. No Rovsing sign. No rebound. No guarding. Musculoskeletal: RUE: Normal range of motion. No tenderness. No deformity LUE: Normal range of motion. No tenderness. No deformity RLE: Normal range of motion. No edema. No tenderness. No deformity LLE: Normal range of motion. No edema. No tenderness. No deformity Neurological: Alert and oriented to person, place, and time. Normal strength. CN II-VII intact. No sensory deficit. GCS eye subscore is 4. GCS verbal subscore is 5. GCS motor subscore is 6. Normal coordination Skin: No shingles or bruising or rash on the right flank or abdomen. Skin is warm and dry. No rash noted. No pallor. Normal capillary refill. Psychiatric: Normal mood. Normal affect. Const: Vital Signs, click to edit/add: Vital Signs - 24 hr 03/10/24 17:46 03/10/24 19:10 03/10/24 20:31 Temperature 98.7 F 101.0 F H Pulse Rate 91 Pulse Rate [Right Pulse Oximeter] 105 H Respiratory Rate 18 Blood Pressure Blood Pressure [Le ft Upper Arm] 115/57 L Pulse Oximetry 96 93 Oxygen Delivery Me thod Room Air 03/10/24 20:45 03/10/24 21:00 03/10/24 21:01 Temperature Pulse Rate 94 90 90 Pulse Rate [Right Pulse Oximeter] Respiratory Rate Blood Pressure 102/60 Blood Pressure [Le ft Upper Arm] Pulse Oximetry 94 94 94 Oxygen Delivery Me thod 03/10/24 21:15 Temperature Pulse Rate 89 Pulse Rate [Right Pulse Oximeter] Respiratory Rate Blood Pressure Blood Pressure [Le ft Upper Arm] Pulse Oximetry 94 Oxygen Delivery Me thod Course Vital Signs Vital signs: Initial Vital Signs Temperature 98.7 F 03/10/24 17:46 Temperature Source Temporal Artery Scan 03/10/24 17:46 Pulse Rate 105 H 03/10/24 17:46 Pulse Rhythm Regular 03/10/24 17:46 Pulse Strength 3+ Normal 03/10/24 17:46 Respiratory Rate 18 03/10/24 17:46 Blood Pressure 115/57 L 03/10/24 17:46 Blood Pressure Mean 76 03/10/24 17:46 Blood Pressure Position Sitting 03/10/24 17:46 Pulse Oximetry 96 03/10/24 17:46 Oxygen Delivery Method Room Air 03/10/24 17:46 Vital Signs Temperature 98.7 F 03/10/24 17:46 Pulse Rate 105 H 03/10/24 17:46 Respiratory Rate 18 03/10/24 17:46 Blood Pressure 115/57 L 03/10/24 17:46 Pulse Oximetry 96 03/10/24 17:46 Oxygen Delivery Method Room Air 03/10/24 17:46 Temperature 101.0 F H 03/10/24 19:10 Pulse Rate 89 03/10/24 21:15 Respiratory Rate 18 03/10/24 17:46 Blood Pressure 102/60 03/10/24 21:01 Pulse Oximetry 94 03/10/24 21:15 Oxygen Delivery Method Room Air 03/10/24 17:46 Medications Administered Medications: Discontinued Medications Generic Name Dose Route Start Last Admin Trade Name Freq PRN Reason Stop Dose Admin Acetaminophen 1,000 mg 03/10/24 19:04 03/10/24 19:10 Acetaminophen 500 Mg Tablet PO 03/10/24 19:05 1,000 mg ONCE ONE Administration Ceftriaxone Sodium 1 gm/ 100 mls @ 200 mls/hr 03/10/24 19:41 03/10/24 21:22 Sodium Chloride IVPB 03/10/24 19:42 Infused ONCE ONE Infusion Azithromycin 500 mg/ Sodium 255 mls @ 255 mls/hr 03/10/24 20:01 03/10/24 21:47 Chloride IVPB 03/10/24 20:02 Infused ONCE ONE Infusion Sodium Chloride 500 mls @ 500 mls/hr 03/10/24 20:07 03/10/24 20:30 0.9 % Sodium Chloride 500 Ml IV 03/10/24 21:06 500 mls/hr .Q1H ONE Administration Medical Decision Making MDM Narrative Medical decision making narrative: Child presents for evaluation of fever, associated with predominantly right upper quadrant pain but also some right flank pain. Differential is broad. She is status post cholecystectomy and appendectomy. She does have a history of C diff triggered by IV antibiotics for her appendix years ago but no recent antibiotics. Concern is for possible pyelonephritis with her recent UTI symptoms. Urinalysis is mildly abnormal with 5-10 wbc's/HPF and positive leukocyte esterase. However urinalysis is not as markedly abnormal as we might expect for a active pyelonephritis. Will treat with Rocephin to cover her UTI. Urine culture pending. She also helps rales on her lung exam in the right base but has not had any recent cough, sore throat, or other respiratory symptoms. CT imaging does confirm a right middle lobe infiltrate suggestive for an infectious/inflammatory infiltrate. Will broaden antibiotic coverage with Azithromycin to cover for community-acquired pneumonia. No history of vomiting or aspiration. COVID and flu PCR are negative CT scan does not show any other abnormality in the abdomen or pelvis such as colitis, diverticulitis, perforation, abscess. LFTs and lipase are normal. No evidence for retained common bile duct stone. No jaundice to suggest cholangitis or hepatitis. No diarrhea to suggest gastroenteritis. No classic rash to suggest viral syndrome, shingles. No evidence for OM on exam. No pharyngitis. Differential for fever included cellulitis, septic arthritis, osteomyelitis but these are not seen on exam. She does meet criteria for sepsis because she presented with fever, tachycardia, leukocytosis. Although she presented with tachycardia and fever but his heart rate is down after Tylenol for fever. She is tolerating p.o. and feels better after an IV fluid bolus. Despite that she continues to feel quite weak. I had a long discussion with the patient and her about admission versus discharge. notes how much weaker than normal she has and strongly encouraging her stay. Ultimately she relates and will take advice. Discussed with our hospitalist, Dr. Fulton. She graciously accepts for admission. She request that I add on a venous lactic, venous blood gas, CRP level, procalcitonin level, urine Legionella and Streptococcus antigens and blood culture. She will follow-up on these test results. She accepts the patient for admission to the hospitalist service. Lab Data Labs: Lab Results 03/10/24 03/10/24 03/10/24 Range/Units 18:47 18:55 20:29 WBC 21.96 H (4.50-11.00) K/uL RBC 3.82 L (4.00-5.20) m/uL Hgb 10.6 L (12.0-16.0) gm/dL Hct 33.2 (33.0-51.0) % MCV 87 (80-100) fL MCH 28 (26-34) pg MCHC 32 (32-36) gm/dL RDW Coeff of Robert 13.4 (11.5-15.5) % Plt Count 572 H (140-440) K/uL Neut % (Auto) 87.4 H (42.0-72.0) % Lymph % (Auto) 4.6 L (20-44) % [place] % (Auto) 6.6 (0.0-11.0) % Eos % (Auto) 0.0 (0.0-7.0) % Baso % (Auto) 0.0 (0.0-3.0) % Neut # (Auto) 19.20 H (1.7-7.0) K/uL Lymph # (Auto) 1.00 (0.90-2.90) K/uL [place] # (Auto) 1.40 H (0.00-0.90) K/UL Eos # (Auto) 0.00 (0.00-0.50) K/uL Baso # (Auto) 0.00 (0.00-0.30) K/uL Abs Immat Gran (auto) 0.30 (0.00-0.30) K/uL Imm/Tot Granulo (auto) 1.4 % Sodium 135 (135-149) mmol/L Potassium 4.0 (3.6-5.1) mmol/L Chloride 105 (96-114) mmol/L Carbon Dioxide 24 (20-32) mmol/L Anion Gap 6 L (7-15) mEq/L BUN 19 (7-30) mg/dL Creatinine 0.8 (0.5-1.5) mg/dL Estimated Creat Clear 40.83 Estimated GFR 77 ml/min Glucose 122 H (60-115) mg/dL Calcium 8.9 (8.4-10.6) mg/dL Total Bilirubin 1.1 (0.1-1.5) mg/dL AST 33 (12-35) U/L ALT 25 (4-35) U/L Alkaline Phosphatase 57 (40-150) U/L Total Protein 6.3 (6.0-8.3) g/dL Albumin 4.0 (3.3-5.0) g/dL Lipase 61 (23-300) U/L Urine Color Yellow (Yellow) Urine Appearance Cloudy A (Clear) Urine pH 6.0 (5.0-8.5) Ur Specific [place] 1.020 (1.000-1.030) Urine Protein 1+ A (Negative) Urine Glucose (UA) Negative (Negative) Urine Ketones 1+ A (Negative) Urine Blood 1+ A (Negative) Urine Nitrite Negative (Negative) Urine Bilirubin Negative (Negative) Urine Urobilinogen 0.2 (0.2-1.0) Ur Leukocyte Esterase 1+ A (Negative) Urine RBC 0-2 (0-2) Urine WBC 5-10 A (0-5) Ur Squamous Epith Cells Moderate A (None-Few) Urine Bacteria Moderate A (None) SARS-CoV-2 (PCR) Negative SARS-CoV-2 (Negative) Influenza Type A (PCR) Negative PCR FLU A (Negative) Influenza Type B (PCR) Negative PCR FLU B (Negative) Imaging Data CT scan - abdomen: Attestation: I have reviewed the pertinent imaging results. Radiologist's impression: IMPRESSION: 1. New focal consolidation at the dependent portion of the right middle lobe, likely infectious/inflammatory. Recommend short interval follow-up low-dose noncontrast CT of the thorax such as within 6-8 weeks to assess for resolution. 2. Trace right pleural effusion. 3. No acute noncontrast findings in the abdomen or pelvis. 4. Several chronic and incidental findings are detailed above. Discharge Plan Discharge Clinical Impression: RLL pneumonia, Acute UTI, Weakness Prescriptions: No Action atorvastatin 10 mg tablet 10 mg PO HS metronidazole 0.75 % gel 1 applic topical BID multivitamin Tablet 1 tab PO DAILY calcium citrate-vitamin D3 [Calcium Citrate + D] 315 mg-5 mcg (200 unit) tablet 1 tab PO DAILY Follow Up/Referrals: Samantha Catalan DO [Primary Care Provider] -
--- NOTE | 2024-03-10 19:01 | CRLHL7_ITS ---
For Patients: As a result of the Century Cures Act, medical imaging exams and procedure reports are released immediately into your electronic medical record. You may view this report before your referring provider. If you have questions, please contact your health care provider. INDICATION: RUQ and R flank pain. S/p erinn, appy. COMPARISON: 12/17/2020 CT abdomen/pelvis TECHNIQUE: CT of the abdomen and pelvis without intravenous contrast. FINDINGS: Please note that absence of intravenous contrast limits evaluation of soft tissue and vascular structures. Lung bases: New focal consolidation at the dependent portion of the right middle lobe (2/5). Trace right pleural effusion. A 5 millimeter left lingular solid pulmonary nodule is unchanged since at least as far back as 12/17/2020 (3/4). Liver: Smooth hepatic contour. Several small cysts scattered throughout the liver. Gallbladder and biliary tree: Surgically absent gallbladder. Spleen: No splenomegaly. Pancreas: Unremarkable noncontrast CT appearance. Adrenal glands: Normal. Kidneys and ureters: No hydroureteronephrosis. No calculus. Bladder: Unremarkable noncontrast CT appearance. Visualized reproductive organs: Retroverted uterus. Gastrointestinal tract: No focal abnormally dilated loops of bowel. Appendix is not definitely visualized. Peritoneal cavity: No free fluid or free air. Two surgical clips again noted at the visceral fat of the right lower abdominal quadrant. Lymph nodes: No enlarged abdominal or pelvic lymph nodes by CT size criteria. Vessels: No abdominal aortic aneurysm. [id number] aortic calcification. Abdominal and pelvic wall: Normal. Bones: There are osseous degenerative changes. Chronic mild anterior vertebral body wedging centered at the thoracolumbar junction. IMPRESSION: 1. New focal consolidation at the dependent portion of the right middle lobe, likely infectious/inflammatory. Recommend short interval follow-up low-dose noncontrast CT of the thorax such as within 6-8 weeks to assess for resolution. 2. Trace right pleural effusion. 3. No acute noncontrast findings in the abdomen or pelvis. 4. Several chronic and incidental findings are detailed above. Please note that all CT scans at this facility use dose modulation, iterative reconstruction, and/or weight-based dosing when appropriate to reduce radiation dose to as low as reasonably achievable. Dictated by Devon Grimaldo MD @ 03/10/2024 7:59:11 PM (Electronically Signed)
[2024-03-10 19:09] LABS: Appearance Urine Cloudy (Clear); Bilirubin Urine Negative (Negative); Blood Urine 1+ (Negative); Color Urine Yellow (Yellow); Glucose Urine Negative (Negative); Ketones Urine 1+ (Negative); Leukocyte Esterase Urine 1+ (Negative); Nitrite Urine Negative (Negative); Protein Urine 1+ (Negative); Urobilinogen Urine 0.2 (0.2-1.0)
[2024-03-10] MEDS: ACETAMINOPHEN 500 MG TABLET 1000 MG PO (19:10)
[2024-03-10 19:14] LABS: Hematocrit 33.2 % (33.0-51.0); Hemoglobin* 10.6 gm/dL (12.0-16.0); Immature Granulocytes Pct Auto 1.4 %; Lymphocytes Percent Auto 4.6 % (20-44); Mean Corpuscular HGB Conc 32 gm/dL (32-36); Mean Corpuscular Hemoglobin 28 pg (26-34); Mean Corpuscular Volume 87 fL (80-100); Monocytes Percent Auto 6.6 % (0.0-11.0); Neutrophils Percent Auto 87.4 % (42.0-72.0); Platelet Count* 572 K/uL (140-440); RDW Coefficient of Variation % 13.4 % (11.5-15.5); Red Blood Count 3.82 m/uL (4.00-5.20); White Blood Count* 21.96 K/uL (4.50-11.00)
[2024-03-10 19:16] LABS: RBC Urine 0-2 (0-2)
[2024-03-10 19:17] LABS: Bacteria Urine Moderate; Squamous Epithelial Cell Urine Moderate (None-Few)
[2024-03-10 19:29] LABS: Slide Review Reflex No
[2024-03-10 19:32] LABS: Chloride* 105 mmol/L (96-114); Sodium* 135 mmol/L (135-149)
[2024-03-10 19:34] LABS: Alanine Aminotransferase* 25 U/L (4-35); Alkaline Phosphatase* 57 U/L (40-150); Anion Gap 6 mEq/L (7-15); Aspartate Amino Transferase* 33 U/L (12-35); Bilirubin Total* 1.1 mg/dL (0.1-1.5); Carbon Dioxide* 24 mmol/L (20-32); Creatinine* 0.8 mg/dL (0.5-1.5); Est. Creatinine Clearance* 40.83; Estimated Glomerular Filt Rate 77 ml/min
[2024-03-10 19:35] LABS: Blood Urea Nitrogen* 19 mg/dL (7-30); Calcium* 8.9 mg/dL (8.4-10.6); Glucose* 122 mg/dL (60-115); Lipase* 61 U/L (23-300); Total Protein* 6.3 g/dL (6.0-8.3)
[2024-03-10] MEDS: cefTRIAXone 1 GM in 0.9 % SODIUM CHLORIDE Mini-bag 100 ML IVPB (19:58)
[2024-03-10] MEDS: AZITHROMYCIN 500 MG in 0.9 % SODIUM CHLORIDE 250 ml 250 ML 255 MG IVPB (20:29)
[2024-03-10] MEDS: 0.9 % SODIUM CHLORIDE 500 ML 500 ML IV (20:30)
[2024-03-10 21:08] LABS: PCR FLU A Negative PCR FLU A (Negative); PCR FLU B Negative PCR FLU B (Negative); SARS PCR* Negative SARS-CoV-2 (Negative)
[2024-03-10 22:07] LABS: HCO3 VBG 23 mmol/L (21-28); Lactate* 0.6 mmol/L (0.5-1.9); PCO2 VBG 33 mmHG (40-50); PO2 VBG 57.1 mmHG (25-47); pH VBG 7.443 (7.32-7.43)
[2024-03-10 22:41] LABS: Procalcitonin* 0.99 ng/mL (<0.50)
[2024-03-10 22:51] LABS: C Reactive Protein* 13.1 mg/dL (0.5-1.0)
--- NOTE | 2024-03-10 22:57 | PM.IMHP1 ---
Hospitalist- H&P: HPI History of Present Illness Date Seen: 03/10/24 Chief complaint: Pain in Lower R abdominal quadrant, temp Narrative: ADMISSION HISTORY AND PHYSICAL - HOSPITALIST Chief Complaint: abdominal pain awoke from sleep earlier today HPI: 73-year-old with a medical history of hearing loss, hyperlipidemia who presents with fever, right upper quadrant abdominal pain x 1 day. She also complains of being nauseated most of the day. No diarrhea. She has felt warm most of the day. She reports chills and body aches. No cough. No dyspnea. No recent antibiotics. She feels like the right upper quadrant abdominal pain radiates to her right flank. She does endorse urinary frequency prior to today but things seemed better today. she states the chest/upper abdominal pain has worsened throughout the day. She reports lap erinn and appy and was worried about pyelonephritis; with no significant cough or dyspnea she was surprised to hear about the pneumonia. ER COURSE: imaging, urine and labs. IV antibiotics. CODE STATUS: FULL CODE EMERGENCY CONTACT PLAN: Jim Cruz Rel To Pat Cell I've updated the PFSH, medications and allergies in the Expanse tabs. INVESTIGATIONS: LABS/MICRO/ECG/IMAGING T-max since arrival to been 101.0 Blood pressure at the lowest has been 102/60 (MAP 74) and is currently 114/50 set Pulses been in the 80s and regular Pulse ox is been low 90s on room air 68.5 [place] [address]. Hemoglobin 10.6. Platelet count 572. 87% neutrophils. Mild respiratory alkalosis. Normal lactate, however this was drawn after fluid Normal electrolytes. Normal renal function. Blood glucose 122. LFTs are normal CRP 13.1, procalcitonin is 0.99 UA is cloudy, 1+ ketones, 1+ LE, 5-10 whites and moderate bacteria and moderate squames I added RSV, strep pneumo and Legionella as at owns when she arrived on the floor New focal consolidation at the dependent portion of the right middle lobe, likely infectious/inflammatory. Recommend short interval follow-up low-dose noncontrast CT of the thorax such as within 6-8 weeks to assess for resolution. REVIEW OF SYSTEMS: 12-point ROS completed with patient and negative unless otherwise stated in HPI or below. PHYSICAL EXAM: CONSTITUTIONAL: Conversive, good historian. A/O. Knows setting and context. flushed; looks ill but not toxic. VITAL SIGNS: see record. HEENT: Normocephalic, atraumatic. PERRL, EOMI, conjunctivae pink, no scleral icterus. Ears and nose externally normal. Pharynx normal. NECK: No JVD. No carotid bruit, no thyromegaly, no adenopathy. CHEST: rhonchi/rales predominate the right lower lung field. no wheezing. HEART: S1 and S2 normal. No harsh murmurs. Edema minimal. MUSCULOSKELETAL: No gross joint deformity or swelling. NEURO: Cranial nerves intact. Grossly intact. No asymmetric findings. SKIN: No rashes, petechiae, concerning changes PSYCHIATRIC: Euthymic. ADMIT TO MEDSURG: FLOOR CARE DVT: Lovenox GI: PO intake Time spent: Today I spent 75 minutes seeing the patient, discussing the patient with ER staff, reviewing Expanse and EPIC notes/diagnostics, discussing the care plan with our care time that includes social work, PT/OT, pharmacy, RT, jail and documenting my impressions and plan in the medical record. [facility] Medical History (Updated 03/10/24 @ 23:41 by Petra Fulton MD) Health care directive on file ?Z78.9 - Other specified health status (ICD-10) Cholecystitis ?K81.9 - Cholecystitis, unspecified (ICD-10) Varicose veins of both lower extremities ?I83.93 - Asymptomatic varicose veins of bilateral lower extremities (ICD-10) Seborrheic dermatitis, unspecified ?L21.9 - Seborrheic dermatitis, unspecified (ICD-10) Sensorineural hearing loss, asymmetrical ?H90.3 - Sensorineural hearing loss, bilateral (ICD-10) Allergic rhinitis ?J30.9 - Allergic rhinitis, unspecified (ICD-10) Elevated cholesterol ?E78.00 - Pure hypercholesterolemia, unspecified (ICD-10) Diarrhea ?R19.7 - Diarrhea, unspecified (ICD-10) Colitis due to Clostridioides difficile ?A04.72 - Enterocolitis due to Clostridium difficile, not specified as recurrent (ICD-10) Surgical History (Updated 03/10/24 @ 23:22 by Petra Fulton MD) S/P total knee arthroplasty (01/28/22) ?Z96.659 - Presence of unspecified artificial knee joint (ICD-10) Total knee replacement status (01/28/22) ?Z96.659 - Presence of unspecified artificial knee joint (ICD-10) History of cholecystectomy ?Z90.49 - Acquired absence of other specified parts of digestive tract (ICD-10) History of bunionectomy of both great toes ?Z98.890 - Other specified postprocedural states (ICD-10) S/P right knee arthroscopy (01/05/13) ?Z98.890 - Other specified postprocedural states (ICD-10) Status post laparoscopic appendectomy ?Z90.49 - Acquired absence of other specified parts of digestive tract (ICD-10) Family History Father Waldenstroms macroglobulinemia Mother Amyloidosis Social History (Reviewed 07/23/22 @ 08:50 by Lucy Bar ~ [facility], [facility]) What is your current living situation?: I presently have a place to live Problems where you live: no known problems Problems where you live details: N/A In the past 12 months, utilities in danger of being shut off: no In the past 12 mos, have been you worried that your food would run out before you had money to buy more?: never true In the past 12 mos, the food you bought just didn't last and you didn't have money to buy more?: never true Highest level of school completed/degree received: Associate degree: occupational, technical, vocational program Smoking Status: Former smoker What tobacco products do you use: cigarettes Years smoked: 18 Smoking quit date/years: >15 years ago Do you use any of these nicotine containing products: None Nicotine containing products detail: Quit smoking in 1985 Second hand tobacco smoke exposure: No How often do you have a drink containing alcohol: monthly or less Alcohol type: beer How many standard drinks containing alcohol do you have on a typical day: 1 or 2 How often do you have six or more drinks on one occasion: Never AUDIT-C Alcohol total score: 1 Non-prescribed substance use: denies use Caffeine: No How often does anyone, including family, friends and others, physically hurt you: never How often does anyone, including family, friends and others, insult or talk down to you: never How often does anyone, including family, friends and others, threaten you with harm: never How often does anyone, including family, friends and others, scream or curse at you: never Are you using contraception or practicing any form of control: No service: No Meds Home Medications and Allergies Home Medications ?Medication ?Instructions ?Recorded ?Confirmed ?Type atorvastatin 10 mg tablet 10 mg PO HS 01/02/22 03/10/24 History metronidazole 0.75 % topical gel 1 applic topical BID 01/02/22 03/10/24 History multivitamin 1 tab PO DAILY 01/02/22 03/10/24 History calcium 315 mg (as 1 tab PO DAILY 01/25/22 03/10/24 History citrate)-vitamin D3 5 mcg (200 unit) tablet (Calcium Citrate + D) Allergies Allergy/AdvReac Type Severity Reaction Status Date / Time No Known Drug Allergies Allergy Verified 03/10/24 17:52 Exam Const: Vital Signs, click to edit/add: Vital Signs - 24 hr 03/10/24 17:46 03/10/24 19:10 03/10/24 20:31 Temperature 98.7 F 101.0 F H Pulse Rate 91 Pulse Rate [Left P ulse Oximeter] Pulse Rate [Right Pulse Oximeter] 105 H Respiratory Rate 18 Blood Pressure Blood Pressure [Le ft Arm] Blood Pressure [Le ft Upper Arm] 115/57 L Pulse Oximetry 96 93 Oxygen Delivery Me thod Room Air 03/10/24 20:45 03/10/24 21:00 03/10/24 21:01 Temperature Pulse Rate 94 90 90 Pulse Rate [Left P ulse Oximeter] Pulse Rate [Right Pulse Oximeter] Respiratory Rate Blood Pressure 102/60 Blood Pressure [Le ft Arm] Blood Pressure [Le ft Upper Arm] Pulse Oximetry 94 94 94 Oxygen Delivery Me thod 03/10/24 21:15 03/10/24 22:32 Temperature 98.2 F Pulse Rate 89 Pulse Rate [Left P ulse Oximeter] 83 Pulse Rate [Right Pulse Oximeter] Respiratory Rate 18 Blood Pressure Blood Pressure [Le ft Arm] 114/57 L Blood Pressure [Le ft Upper Arm] Pulse Oximetry 94 93 Oxygen Delivery Me thod Room Air Hospitalist - H&P: Result Labs Labs: Short CBC 12/11/24 Range/Units 18:55 WBC 21.96 H (4.50-11.00) K/uL Hgb 10.6 L (12.0-16.0) gm/dL Hct 33.2 (33.0-51.0) % Plt Count 572 H (140-440) K/uL BMP 03/10/24 18:55 Sodium 135 Potassium 4.0 Chloride 105 Carbon Dioxide 24 BUN 19 Creatinine 0.8 Glucose 122 H Calcium 8.9 Liver Function 03/10/24 Range/Units 18:55 Total Bilirubin 1.1 (0.1-1.5) mg/dL AST 33 (12-35) U/L ALT 25 (4-35) U/L Alkaline Phosphatase 57 (40-150) U/L Albumin 4.0 (3.3-5.0) g/dL Urine 03/10/24 Range/Units 18:47 Urine Color Yellow (Yellow) Urine Appearance Cloudy A (Clear) Urine pH 6.0 (5.0-8.5) Ur Specific [place] 1.020 (1.000-1.030) Urine Protein 1+ A (Negative) Urine Glucose (UA) Negative (Negative) Assessment and Plan Assessment and plan (1) Community acquired pneumonia: Problem comment: -focal consolidation in the right middle lobe, associated pleurisy likely explains her pain -rads recommended a follow-up CT in 6-8 weeks to assess resolution -IV Rocephin and IV azithromycin in the ED will continue IV Rocephin and p.o. azithromycin -good pulmonary hygiene -strep pneumo and Legionella and RSV are still pending at the time of dictation -blood and urine cultures pending (blood cultures after antibiotics) Status: Acute (2) Acute UTI: Problem comment: Given history of pyelonephritis and abnormal UA despite corresponding convincing clinical correlation, also in the differential; part of the picture Blood and urine cultures pending Status: Acute (3) SIRS (systemic inflammatory response syndrome): Problem comment: -febrile, borderline hypotension, tachycardic on arrival, elevated WBC. -fluids, supportive care, trend labs and clincial course. Status: Acute (4) Weakness: Problem comment: related to above Status: Acute
[2024-03-10 23:33] LABS: PCR RSV Negative PCR RSV (Negative)
[2024-03-11] VITALS (7 sets, daily range): BP systolic 105–136; BP diastolic 53–89; PULSE 75–85; RESP 16–18; TEMP 36.6–37.3; O2SAT 93–98
[2024-03-11 00:08] LABS: Legionella pneumo Ag Urine L. pneumo Negative (Negative); S pneumo Ag Urine S. pneumo POSITIVE (Negative)
[2024-03-11] MEDS: ACETAMINOPHEN 325 MG TABLET PO ×2 (04:28→20:37)
--- NOTE | 2024-03-11 06:55 | PC.NURSE ---
Addendum entered by Rolanda Minor RN 03/11/24 06:59: Pt on tele with NSR noted. EKG performed last night per MD order with results given to MD Petra Fulton. Original Note: End of shift note [id number]: Pt A&Ox4 and able to make needs known. She is transferring/ambulating with SBA in room. Tele in place with NSR noted. Pt continent of bladder using bathroom. Urine noted to be light chad in color and cloudy toward end of shift with po fluids encouraged. Temp of 99.1 noted this morning with PRN Tylenol given for pain control. Pt declines to take anything stronger for pain than Tylenol stating, ?pain medication does not agree with me. It makes me nauseous and goofy?. Pt denies shortness of breath and coughing when asked. IV to R AC patent and SL. O2 sat of 93% on RA noted with 2300 and 0300 VS. Call light within reach.
[2024-03-11 06:59] LABS: HCO3 VBG 25 mmol/L (21-28); PCO2 VBG 37 mmHG (40-50); pH VBG 7.445 (7.32-7.43)
[2024-03-11 07:15] LABS: Basophils Percent Auto 0.1 % (0.0-3.0); Eosinophils Percent Auto 0.3 % (0.0-7.0); Hematocrit 30.8 % (33.0-51.0); Hemoglobin* 9.9 gm/dL (12.0-16.0); Immature Granulocytes Pct Auto 0.2 %; Lymphocytes Percent Auto 7.9 % (20-44); Mean Corpuscular HGB Conc 32 gm/dL (32-36); Mean Corpuscular Hemoglobin 28 pg (26-34); Mean Corpuscular Volume 88 fL (80-100); Monocytes Percent Auto 5.6 % (0.0-11.0); Neutrophils Percent Auto 85.9 % (42.0-72.0); Platelet Count* 212 K/uL (140-440); RDW Coefficient of Variation % 13.4 % (11.5-15.5)
[2024-03-11 07:18] LABS: Slide Review Reflex No
[2024-03-11 07:27] LABS: Chloride* 109 mmol/L (96-114); Potassium* 3.9 mmol/L (3.6-5.1); Sodium* 137 mmol/L (135-149)
[2024-03-11 07:30] LABS: Anion Gap 3 mEq/L (7-15); Carbon Dioxide* 25 mmol/L (20-32); Creatinine* 0.7 mg/dL (0.5-1.5); Est. Creatinine Clearance* 40.83; Estimated Glomerular Filt Rate 91 ml/min; Lipase* 75 U/L (23-300)
[2024-03-11 07:31] LABS: Blood Urea Nitrogen* 17 mg/dL (7-30); Calcium* 8.3 mg/dL (8.4-10.6); Glucose* 102 mg/dL (60-115)
[2024-03-11 07:46] LABS: Procalcitonin* 0.92 ng/mL (<0.50)
[2024-03-11 07:49] LABS: C Reactive Protein* 18.2 mg/dL (0.5-1.0); NT Pro B Type NatriureticPept* 482 pg/mL
[2024-03-11] MEDS: IBUPROFEN 400 MG TABLET PO ×3 (08:10→18:29)
[2024-03-11] MEDS: cefTRIAXone 1 GM in 0.9 % SODIUM CHLORIDE Mini-bag 100 ML IVPB (09:20)
[2024-03-11] MEDS: SODIUM CHLORIDE 0.9 % (FLUSH) 10 ML SYRINGE 5 ML IVF ×2 (09:21→20:37)
--- NOTE | 2024-03-11 11:13 | REH.OT ---
OT screen completed. Pt is indep with mobility in room, grooming/hygiene at sink, and LB dressing. No further OT warranted. Pt and have no concerns and feel pt is at baseline.
--- NOTE | 2024-03-11 11:25 | REH.PT ---
Orders for PT eval & treat received and chart reviewed. Pt up amb ind without an AD upon approach. Pt scoring 24/56 on Avendano balance test. Appears at baseline with regards to functional mobility. Pt has no therapy concerns. d/c PT orders.
--- NOTE | 2024-03-11 11:39 | CRLHL7_ITS ---
For Patients: As a result of the Century Cures Act, medical imaging exams and procedure reports are released immediately into your electronic medical record. You may view this report before your referring provider. If you have questions, please contact your health care provider. INDICATION: Pneumococcal pneumonia, right pleuritic pain TECHNIQUE: 1 view chest radiograph COMPARISON: CT abdomen pelvis 03/10/2024 FINDINGS: Devices: None. Lung volumes are moderate. Focal consolidation in the right lateral lower lung corresponds to the lateral segment middle lobe pneumonia seen yesterday. Background of some mild distortion and scarring elsewhere without any other focal consolidation. Trace right pleural effusion. No pneumothorax. Heart size is normal. IMPRESSION: Lateral segment right middle lobe pneumonia and trace right pleural effusion. Not definitely different than the CT obtained yesterday. Dictated by Rolanda Treviño MD @ 03/11/2024 12:45:36 PM (Electronically Signed)
--- NOTE | 2024-03-11 11:45 | P.IMPN_ITS ---
Progress Note: A&P Assessment and plan (1) Pneumococcal pneumonia (streptococcus pneumoniae pneumonia): Problem details: - focal consolidation in the right middle lobe, associated pleurisy - Patient notes that she has been vaccinated for this in the past -pneumococcal positive, Legionella negative. RSV, COVID, influenza negative. -blood culture negative to date -obtained chest x-ray today for full visualization of lung oleary as this was diagnosed from a CT abdomen and pelvis yesterday -IV Rocephin and IV azithromycin in the ED will continue IV Rocephin and p.o. azithromycin -good pulmonary hygiene -rads recommended a follow-up CT in 6-8 weeks to assess resolution Status: Acute (2) Acute UTI: Problem details: Given history of pyelonephritis and abnormal UA despite corresponding convincing clinical correlation, also in the differential; part of the picture Blood and urine cultures pending - continue ceftriaxone Status: Acute (3) SIRS (systemic inflammatory response syndrome): Problem details: -met sepsis criteria: febrile, borderline hypotension, tachycardic on arrival, elevated WBC, source of infection pneumococcal pneumonia and probable UTI -antibiotics as above, fluids, supportive care, trend labs and clincial course. Status: Resolved (4) Weakness: Problem details: related to above, improving Status: Acute Plan - continued treatment with IV antibiotics for pneumococcal pneumonia and probable UTI. Will monitor overnight yet as patient is still having pleurisy and could develop worsening empyema. Ideally also will have urine culture results prior to discharge. Subjective Time Seen by Provider: 09:41 Date Seen: 03/11/24 Interval history: Edith is starting to feel better. She notes how sick she felt yesterday with fever, chills, body aches, abdominal pain, and nausea. She has persistent pruritic pain (with inspiration) in her right low chest anteriolaterallly. She notes that urinary frequency is also improving. Exam Narrative: Exam Narrative: General: No acute distress. Awake, alert, oriented x3. No pallor. No jaundice. Oropharynx: Clear. Mucous membranes moist. Cardiovascular: Regular rate and rhythm. No murmurs, gallops, or rubs. Respiratory: Rhonchi in the right lower lung field. No crackles or wheezing. Abdomen: Bowel sounds present. Soft, nondistended, nontender. Extremities: No lower extremity edema. Const: Vital Signs, click to edit/add: Vital Signs - 24 hr 03/10/24 17:46 03/10/24 19:10 03/10/24 20:31 Temperature 98.7 F 101.0 F H Pulse Rate 91 Pulse Rate [Left P ulse Oximeter] Pulse Rate [Right Pulse Oximeter] 105 H Respiratory Rate 18 Blood Pressure Blood Pressure [Le ft Arm] Blood Pressure [Le ft Upper Arm] 115/57 L Pulse Oximetry 96 93 Oxygen Delivery Me thod Room Air 03/10/24 20:45 03/10/24 21:00 03/10/24 21:01 Temperature Pulse Rate 94 90 90 Pulse Rate [Left P ulse Oximeter] Pulse Rate [Right Pulse Oximeter] Respiratory Rate Blood Pressure 102/60 Blood Pressure [Le ft Arm] Blood Pressure [Le ft Upper Arm] Pulse Oximetry 94 94 94 Oxygen Delivery Me thod 03/10/24 21:15 03/10/24 22:32 03/10/24 22:32 Temperature 98.2 F Pulse Rate 89 Pulse Rate [Left P ulse Oximeter] 83 Pulse Rate [Right Pulse Oximeter] Respiratory Rate 18 18 Blood Pressure Blood Pressure [Le ft Arm] 114/57 L Blood Pressure [Le ft Upper Arm] Pulse Oximetry 94 93 94 Oxygen Delivery Me thod Room Air Room Air 03/10/24 22:35 03/10/24 23:00 03/10/24 23:05 Temperature 98.2 F 98.2 F Pulse Rate Pulse Rate [Left P ulse Oximeter] 83 85 83 Pulse Rate [Right Pulse Oximeter] Respiratory Rate 18 18 18 Blood Pressure Blood Pressure [Le ft Arm] 114/57 L 114/57 L Blood Pressure [Le ft Upper Arm] Pulse Oximetry 93 93 Oxygen Delivery Me thod Room Air Room Air 03/10/24 23:30 03/10/24 23:40 03/11/24 04:17 Temperature 99.1 F Pulse Rate 77 Pulse Rate [Left P ulse Oximeter] 85 Pulse Rate [Right Pulse Oximeter] Respiratory Rate 18 Blood Pressure Blood Pressure [Le ft Arm] 112/53 L Blood Pressure [Le ft Upper Arm] Pulse Oximetry 94 94 Oxygen Delivery Me thod Room Air 03/11/24 07:31 03/11/24 08:09 Temperature 98.2 F Pulse Rate 78 Pulse Rate [Left P ulse Oximeter] 79 Pulse Rate [Right Pulse Oximeter] Respiratory Rate 18 Blood Pressure Blood Pressure [Le ft Arm] 105/60 Blood Pressure [Le ft Upper Arm] Pulse Oximetry 93 Oxygen Delivery Me thod Room Air Labs Labs: Laboratory Results - last 24 hr 03/10/24 03/10/24 03/10/24 18:47 18:55 20:29 WBC 21.96 H RBC 3.82 L Hgb 10.6 L Hct 33.2 MCV 87 MCH 28 MCHC 32 RDW Coeff of Robert 13.4 Plt Count 572 H Neut % (Auto) 87.4 H Lymph % (Auto) 4.6 L [place] % (Auto) 6.6 Eos % (Auto) 0.0 Baso % (Auto) 0.0 Neut # (Auto) 19.20 H Lymph # (Auto) 1.00 [place] # (Auto) 1.40 H Eos # (Auto) 0.00 Baso # (Auto) 0.00 Abs Immat Gran (auto) 0.30 Imm/Tot Granulo (auto) 1.4 VBG pH VBG pCO2 VBG pO2 VBG HCO3 Sodium 135 Potassium 4.0 Chloride 105 Carbon Dioxide 24 Anion Gap 6 L BUN 19 Creatinine 0.8 Estimated Creat Clear 40.83 Estimated GFR 77 Glucose 122 H Lactate Calcium 8.9 Total Bilirubin 1.1 AST 33 ALT 25 Alkaline Phosphatase 57 C-Reactive Protein NT-Pro-B Natriuret Pep Total Protein 6.3 Albumin 4.0 Lipase 61 Procalcitonin TSH Urine Color Yellow Urine Appearance Cloudy A Urine pH 6.0 Ur Specific [place] 1.020 Urine Protein 1+ A Urine Glucose (UA) Negative Urine Ketones 1+ A Urine Blood 1+ A Urine Nitrite Negative Urine Bilirubin Negative Urine Urobilinogen 0.2 Ur Leukocyte Esterase 1+ A Urine RBC 0-2 Urine WBC 5-10 A Ur Squamous Epith Cells Moderate A Urine Bacteria Moderate A Urine L. pneumophilia Ag L. pneumo Negative Urine Strep pneumoniae Ag S. pneumo POSITIVE A SARS-CoV-2 (PCR) Negative SARS-CoV-2 Influenza Type A (PCR) Negative PCR FLU A Influenza Type B (PCR) Negative PCR FLU B RSV (PCR) Negative PCR RSV Lab Acknowledgement 03/10/24 03/10/24 03/10/24 22:00 23:05 23:06 WBC RBC Hgb Hct MCV MCH MCHC RDW Coeff of Robert Plt Count Neut % (Auto) Lymph % (Auto) [place] % (Auto) Eos % (Auto) Baso % (Auto) Neut # (Auto) Lymph # (Auto) [place] # (Auto) Eos # (Auto) Baso # (Auto) Abs Immat Gran (auto) Imm/Tot Granulo (auto) VBG pH 7.443 H VBG pCO2 33 L VBG pO2 57.1 H VBG HCO3 23 Sodium Potassium Chloride Carbon Dioxide Anion Gap BUN Creatinine Estimated Creat Clear Estimated GFR Glucose Lactate 0.6 Calcium Total Bilirubin AST ALT Alkaline Phosphatase C-Reactive Protein 13.1 H NT-Pro-B Natriuret Pep Total Protein Albumin Lipase Procalcitonin 0.99 H TSH Urine Color Urine Appearance Urine pH Ur Specific [place] Urine Protein Urine Glucose (UA) Urine Ketones Urine Blood Urine Nitrite Urine Bilirubin Urine Urobilinogen Ur Leukocyte Esterase Urine RBC Urine WBC Ur Squamous Epith Cells Urine Bacteria Urine L. pneumophilia Ag Urine Strep pneumoniae Ag SARS-CoV-2 (PCR) Influenza Type A (PCR) Influenza Type B (PCR) RSV (PCR) Lab Acknowledgement Test Added Test Added 03/11/24 06:28 WBC 17.00 H RBC 3.50 L Hgb 9.9 L Hct 30.8 L MCV 88 MCH 28 MCHC 32 RDW Coeff of Robert 13.4 Plt Count 212 Neut % (Auto) 85.9 H Lymph % (Auto) 7.9 L [place] % (Auto) 5.6 Eos % (Auto) 0.3 Baso % (Auto) 0.1 Neut # (Auto) 14.60 H Lymph # (Auto) 1.30 [place] # (Auto) 1.00 H Eos # (Auto) 0.10 Baso # (Auto) 0.00 Abs Immat Gran (auto) 0.00 Imm/Tot Granulo (auto) 0.2 VBG pH 7.445 H VBG pCO2 37 L VBG pO2 67.0 H VBG HCO3 25 Sodium 137 Potassium 3.9 Chloride 109 Carbon Dioxide 25 Anion Gap 3 L BUN 17 Creatinine 0.7 Estimated Creat Clear 40.83 Estimated GFR 91 Glucose 102 Lactate Calcium 8.3 L Total Bilirubin AST ALT Alkaline Phosphatase C-Reactive Protein 18.2 H NT-Pro-B Natriuret Pep 482 Total Protein Albumin Lipase 75 Procalcitonin 0.92 H TSH 1.990 Urine Color Urine Appearance Urine pH Ur Specific [place] Urine Protein Urine Glucose (UA) Urine Ketones Urine Blood Urine Nitrite Urine Bilirubin Urine Urobilinogen Ur Leukocyte Esterase Urine RBC Urine WBC Ur Squamous Epith Cells Urine Bacteria Urine L. pneumophilia Ag Urine Strep pneumoniae Ag SARS-CoV-2 (PCR) Influenza Type A (PCR) Influenza Type B (PCR) RSV (PCR) Lab Acknowledgement
[2024-03-11] MEDS: AZITHROMYCIN 250 MG TABLET PO (12:48)
[2024-03-11] MEDS: ATORVASTATIN 10 MG TABLET PO (20:37)
[2024-03-12 03:00] VITALS: BP 144/86; PULSE 72; RESP 18; TEMP 36.8; O2SAT 93
--- NOTE | 2024-03-12 06:40 | PC.NURSE ---
Shift summary: Pt has been A&O, afebrile and VSS. She is up ad angeli in her room with a steady gait. Reports intermittent right sided ribcage pain with deep breathing & movement, rating it at a 5/10 with no change after Tylenol. PIV in right AC SL and C/D/I. Pt reports x3 loose stools yesterday with a h/o C. Diff so we?ve been waiting to collect a stool sample but she has yet to have another BM. Refused DuoNebs overnight. She?s on IV Rocephin q24 and PO Zithromax q24 for PNX and UTI. ?
[2024-03-12 07:00] VITALS: BP 132/85; PULSE 85; RESP 18; TEMP 36.9; O2SAT 98
[2024-03-12] MEDS: IBUPROFEN 400 MG TABLET PO ×2 (08:17→11:27)
[2024-03-12] MEDS: cefTRIAXone 1 GM in 0.9 % SODIUM CHLORIDE Mini-bag 100 ML IVPB (08:18)
[2024-03-12] MEDS: SODIUM CHLORIDE 0.9 % (FLUSH) 10 ML SYRINGE 5 ML IVF (09:31)
[2024-03-12] MEDS: ACETAMINOPHEN 325 MG TABLET PO (09:31)
--- NOTE | 2024-03-12 09:45 | P.DS_ITS ---
DS: Providers Provider Date Seen: 03/12/24 Date of admission: 03/10/24 23:05 Primary care physician: Samantha Catalan DO Admitting Clinician: Petra Fulton MD Consults: 03/10/24 23:05 Consult to Occupational Therapy [CONS] Routine Comment: Reason(s) for OT Consult:: Evaluate and Treat Any Restrictions?:: No Restrictions Consult to Respiratory Therapy [CONS] Routine Comment: Reason(s) for RT Consult:: Consult Consult to Cryptologic Supervisor [CONS] Routine Comment: Reason for Consult:: Social Service Consult Attending Physician on discharge: Janice Condon MD DS: Diagnosis Discharge Diagnosis (1) Pneumococcal pneumonia (streptococcus pneumoniae pneumonia): Status: Acute Problem details: - focal consolidation in the right middle lobe, associated pleurisy - Patient notes that she has been vaccinated for this in the past -pneumococcal urine Ag positive, Legionella negative. RSV, COVID, influenza negative. -blood culture negative to date -stable improving symptoms, CXR similar yesterday appearance to CT (abd) day before -IV Rocephin and IV azithromycin in the ED and on continue IV Rocephin and p.o. azithromycin since admission. -03/12 afebrile x 48h, pleurisy stable. UC resulted. BC NGTD. Discharge home on cefdinir x 4 days and azithromycin x 1 more day. -rads recommended a follow-up CT in 6-8 weeks to assess resolution (2) Acute UTI: Status: Ruled-out Problem details: Given history of pyelonephritis and abnormal UA despite corresponding convincing clinical correlation, also in the differential; part of the picture Blood and urine cultures negative (3) SIRS (systemic inflammatory response syndrome): Status: Resolved Problem details: -met sepsis criteria: febrile, borderline hypotension, tachycardic on arrival, elevated WBC, source of infection pneumococcal pneumonia and probable UTI -antibiotics as above, fluids, supportive care, trend labs and clincial course. (4) Weakness: Status: Resolved Problem details: related to above, improving (5) Pleuritis: Status: Acute Problem details: - pneumococcal infection, trace R effusion on CT chest, stable on CXR DS: Summary Hospital Course Hospital Course: 73-year-old with a medical history of hearing loss, hyperlipidemia who presents with fever, right upper quadrant abdominal pain x 1 day. She also complains of being nauseated most of the day. No diarrhea. She has felt warm most of the day. She reports chills and body aches. No cough. No dyspnea. No recent antibiotics. She feels like the right upper quadrant abdominal pain radiates to her right flank. She does endorse urinary frequency prior to today but things seemed better today. she states the chest/upper abdominal pain has worsened throughout the day. She reports lap erinn and appy and was worried about pyelonephritis; with no significant cough or dyspnea she was surprised to hear about the pneumonia. She was admitted on IV ceftriaxone and oral azithromycin. Her symptoms started to improve and she remained afebrile. Pleuritic symptoms are persistent but improving. CXR on 2nd hospital day showed stability. UC grew out mixed piedad, BC is no growth to date. She is discharged home today in improved and stable condition. No hypoxia. NOTE TO PCP: follow-up CT in 6-8 weeks to assess resolution Time Spent with Patient Time attestation: Total time spent providing and/or coordinating discharge services: Exam Narrative: Exam Narrative: General: No acute distress. Awake, alert, oriented x3. No pallor. No jaundice. Oropharynx: Clear. Mucous membranes moist. Cardiovascular: Regular rate and rhythm. No murmurs, gallops, or rubs. Respiratory: Improving rhonchi in the right lower lung field. No crackles or wheezing. Abdomen: Bowel sounds present. Soft, nondistended, nontender. Extremities: No lower extremity edema. Const: Vital Signs, click to edit/add: Vital Signs - 24 hr 03/11/24 12:46 03/11/24 16:22 03/11/24 19:40 Temperature 98.1 F 97.9 F 98.1 F Pulse Rate [Left P ulse Oximeter] 75 78 77 Respiratory Rate 16 16 18 Blood Pressure [Le ft Arm] 125/69 131/89 136/67 Blood Pressure [Ri ght Arm] Pulse Oximetry 95 97 98 Oxygen Delivery Me thod Room Air Room Air Room Air 03/11/24 23:00 03/12/24 03:00 03/12/24 07:00 Temperature 98.2 F 98.5 F Pulse Rate [Left P ulse Oximeter] 72 85 Respiratory Rate 16 18 18 Blood Pressure [Le ft Arm] 132/85 Blood Pressure [Ri ght Arm] 144/86 H Pulse Oximetry 93 98 Oxygen Delivery Me thod Room Air Room Air DS: Data Data Completed and Pending Completed studies during hospitalization: 03/11/2024 EKG: Normal sinus rhythm, 73 beats per minute, low voltage QRS. Ordering Physician: Manuel Moore M.D. Date of Service: 03/10/24 Procedure(s): CT abdomen pelvis wo con Accession Number(s): [id number] cc: Samantha Catalan D.O.; Manuel Moore M.D.~ For Patients: As a result of the Cures Act, medical imaging exams and procedure reports are released immediately into your electronic medical record. You may view this report before your referring provider. If you have questions, please contact your health care provider. INDICATION: RUQ and R flank pain. S/p erinn, appy. COMPARISON: 12/17/2020 CT abdomen/pelvis TECHNIQUE: CT of the abdomen and pelvis without intravenous contrast. FINDINGS: Please note that absence of intravenous contrast limits evaluation of soft tissue and vascular structures. Lung bases: New focal consolidation at the dependent portion of the right middle lobe (2/5). Trace right pleural effusion. A 5 millimeter left lingular solid pulmonary nodule is unchanged since at least as far back as 12/17/2020 (3/4). Liver: Smooth hepatic contour. Several small cysts scattered throughout the liver. Gallbladder and biliary tree: Surgically absent gallbladder. Spleen: No splenomegaly. Pancreas: Unremarkable noncontrast CT appearance. Adrenal glands: Normal. Kidneys and ureters: No hydroureteronephrosis. No calculus. Bladder: Unremarkable noncontrast CT appearance. Visualized reproductive organs: Retroverted uterus. Gastrointestinal tract: No focal abnormally dilated loops of bowel. Appendix is not definitely visualized. Peritoneal cavity: No free fluid or free air. Two surgical clips again noted at the visceral fat of the right lower abdominal quadrant. Lymph nodes: No enlarged abdominal or pelvic lymph nodes by CT size criteria. Vessels: No abdominal aortic aneurysm. Onol-po-uihmapus aortic calcification. Abdominal and pelvic wall: Normal. Bones: There are osseous degenerative changes. Chronic mild anterior vertebral body wedging centered at the thoracolumbar junction. IMPRESSION: 1. New focal consolidation at the dependent portion of the right middle lobe, likely infectious/inflammatory. Recommend short interval follow-up low-dose noncontrast CT of the thorax such as within 6-8 weeks to assess for resolution. 2. Trace right pleural effusion. 3. No acute noncontrast findings in the abdomen or pelvis. 4. Several chronic and incidental findings are detailed above. Please note that all CT scans at this facility use dose modulation, iterative reconstruction, and/or weight-based dosing when appropriate to reduce radiation dose to as low as reasonably achievable. Dictated by Devon Grimaldo MD @ 03/10/2024 7:59:11 PM (Electronically Signed) Ordering Physician: Janice Condon M.D. Date of Service: 03/11/24 Procedure(s): XR chest 1V portable Accession Number(s): [id number] cc: Samantha Catalan D.O.; Janice Condon M.D.~ For Patients: As a result of the Cures Act, medical imaging exams and procedure reports are released immediately into your electronic medical record. You may view this report before your referring provider. If you have questions, please contact your health care provider. INDICATION: Pneumococcal pneumonia, right pleuritic pain TECHNIQUE: 1 view chest radiograph COMPARISON: CT abdomen pelvis 03/10/2024 FINDINGS: Devices: None. Lung volumes are moderate. Focal consolidation in the right lateral lower lung corresponds to the lateral segment middle lobe pneumonia seen yesterday. Background of some mild distortion and scarring elsewhere without any other focal consolidation. Trace right pleural effusion. No pneumothorax. Heart size is normal. IMPRESSION: Lateral segment right middle lobe pneumonia and trace right pleural effusion. Not definitely different than the CT obtained yesterday. Dictated by Rolanda Treviño MD @ 03/11/2024 12:45:36 PM (Electronically Signed) Labs on day of discharge: Labs from last 24 hours 03/12/24 Unknown Stl C. diff Tox B Gene Pending Stl C. diff [id number] Pending Preliminary micro results at discharge 03/10/24 22:00 Blood Culture - Preliminary Blood NO GROWTH AFTER 24 HOURS 03/10/24 18:47 Urine Culture - Preliminary Urine,Clean Catch < 50,000 COL/ML MIXED GRAM POSITIVE PIEDAD ISOLATED NO FURTHER WORKUP Discharge Plan Discharge Disposition: Home, Self-Care Date of Admission: 03/10/24 23:05 Attending Provider on Discharge: Janice Condon Primary Care Provider: Samantha Catalan Condition: Improved Anticipated Discharge Date/Time: 03/12/24 11:11 Discharge Medications: New azithromycin 250 mg Tablet 250 mg PO Q24H Qty: 1 0RF Lactobacillus acidophilus 0.5 mg (100 million cell) Tablet 100 mmu cells PO TIDWM Qty: 100 0RF cefdinir 300 mg capsule 300 mg PO BID 4 Days Qty: 8 0RF Continued atorvastatin 10 mg tablet 10 mg PO HS metronidazole 0.75 % gel 1 applic topical BID multivitamin Tablet 1 tab PO DAILY calcium citrate-vitamin D3 [Calcium Citrate + D] 315 mg-5 mcg (200 unit) tablet 1 tab PO DAILY Discharge Orders: Discharge Order (Routine); Ordered 03/12/24 Ordered By: Janice Condon Additional Instructions: See PCP for follow-up CT in 6-8 weeks to assess resolution Activity Level: Activity as Tolerated Discharge Diet: Regular Follow Up Appointments: Samantha Catalan, [Primary Care Provider] - (3-5 days) Forms: [facility] Info Inst[facility]
[2024-03-12 10:29] LABS: C.Difficile Negative (Negative); CDIFFEPI 027 PRESUMPTIVE NEGATIVE (Negative)
[2024-03-12] MEDS: LACTOBACILLUS ACIDOPHILUS 1 TABLET 2 TAB PO (11:24)
[2024-03-12] MEDS: AZITHROMYCIN 250 MG TABLET PO (11:26)
[2024-03-12 11:47] VITALS: RESP 20; O2SAT 93
--- NOTE | 2024-03-12 12:01 | PC.SOCIAL ---
Discharge planning: No social work needs were identified for this pt during her hospital stay. Pt will be returning home at discharge with her family. Social work to follow-up as needed.
--- NOTE | 2024-03-12 14:59 | PC.NURSE ---
The patient discharged home and ambulated off the unit with her . Pain is well controlled with scheduled ibu and Tylenol.... Educated regarding PO abx and use of probiotic while on it. I also instructed the patient to use Imodium if multiple episodes of loose stools occur in a day. All belongings were accounted for. Ivette WING BSN
== END 2024-03-12 13:52 | disposition home or self-care (01) | DRG 194 ==
LOC: ED 19:08 → MEDSURG 22:22
PROVIDERS: Internal Medicine; Admitting Provider Family Medicine; Emergency Provider Emergency Medicine; PCP Family Medicine; Visit Provider Family Medicine
DX: J13 Pneumonia due to Streptococcus pneumoniae (principal); J90 Pleural effusion, not elsewhere classified; N39.0 Urinary tract infection, site not specified; B96.20 Unspecified Escherichia coli [E. coli] as the cause of diseases classified elsewhere; R10.11 Right upper quadrant pain; E78.00 Pure hypercholesterolemia, unspecified
CPT/HCPCS: 36415; 71045; 74176; 80048; 80053; 81001; 82803; 83605; 83690; 83880; 84145; 84443; 85025; 86140; 87040; 87086; 87186; 87449; 87493; 87631; 87899; 93005; 99284; 99285; A9270; J0456; J0696; J7030; J7050

== ENCOUNTER 2025-01-07 10:14 | Outpatient (CLI) | payer MEDICARE, BC, SELFPAY | END 2025-01-07 10:15 | disposition home or self-care (01) | LOC: NFLDREF 01-10 18:07 | PROVIDERS: PCP Family Medicine; Referring Provider Family Medicine; Visit Provider Physician Assistant Surgical | DX: N30.01 Acute cystitis with hematuria (principal) | CPT/HCPCS: 87086 ==

== ENCOUNTER 2025-03-10 16:51 | Emergency (ER) | payer MEDICARE, BC, SELFPAY ==
[2025-03-10] VITALS (8 sets, daily range): BP systolic 149–166; BP diastolic 65–90; PULSE 67–80; RESP 1–18; TEMP 36.4; O2SAT 97–100
--- NOTE | 2025-03-10 17:46 | CRLHL7_ITS ---
For Patients: As a result of the Century Cures Act, medical imaging exams and procedure reports are released immediately into your electronic medical record. You may view this report before your referring provider. If you have questions, please contact your health care provider. Indication: Dizziness. Technique: CT of the head without contrast. Coronal and sagittal reformats. Bone and soft tissue windows. Comparison: No prior studies available for comparison at this institution. Findings: No acute intracranial hemorrhage or extra-axial collection. No evidence of acute cortical infarction. No mass effect or midline shift. Normal cerebral volume. The ventricles are normal in size, shape and contour. There is normal nichols and white matter differentiation. Carotid siphon atherosclerosis. The orbital contents are normal. No calvarial fractures. Partially empty sella. No lytic or sclerotic osseous lesions within the calvarium or skull base. Scalp and other imaged soft tissue structures are normal. Mastoid air cells are clear. Paranasal sinuses are well aerated. Leftward deviation of the nasal septum. Impression: No acute intracranial abnormality. Please note that all CT scans at this facility use dose modulation, iterative reconstruction, and/or weight-based dosing when appropriate to reduce radiation dose to as low as reasonably achievable. Dictated by Sam Lantigua MD @ 03/10/2025 6:12:22 PM (Electronically Signed)
--- NOTE | 2025-03-10 17:50 | ED.GENADULT ---
HPI - General Adult General Chief complaint: Nausea/Vomiting Stated complaint: nausea, dizziness Time Seen by Provider: 03/10/25 17:33 Source: patient Mode of arrival: ambulatory Limitations: no limitations History of Present Illness HPI narrative: Patient is a 74-year-old female coming in today complaining of dizziness. Patient states that she woke up this morning and when she got out of bed the whole room started spinning around her and she vomited. She laid back down and has been essentially lying in her better on the couch all day. She notices that when she gets up she feels dizzy again. Dizziness generally gets better when she is lying down however she feels ?off?. She denies chest pain or shortness of breath. No abdominal discomfort. She denies any urinary symptoms such as increased frequency, urgency or dysuria. She does have a dull headache that is been present all day despite 1 dose of Tylenol. She did vomit once again in the afternoon. She denies any fevers or chills. No confusion or altered mental status. No weakness of the extremities. No speech changes. No palpitations. She states that she had a similar episode 10-15 years ago. Past medical history significant for hyperlipidemia. Related Data Home Medications ?Medication ?Instructions ?Recorded ?Confirmed atorvastatin 10 mg tablet 10 mg PO HS 01/02/22 03/10/25 metronidazole 0.75 % topical gel 1 applic topical BID 01/02/22 03/10/25 multivitamin 1 tab PO DAILY 01/02/22 03/10/25 calcium 315 mg (as 1 tab PO DAILY 01/25/22 03/10/25 citrate)-vitamin D3 5 mcg (200 unit) tablet (Calcium Citrate + D) fluticasone propionate 50 1 spray intranasal DAILY 03/10/25 03/10/25 mcg/actuation nasal spray,suspension (24 Hour Allergy Relief) Previous Rx's ?Medication ?Instructions ?Recorded Lactobacillus acidophilus 0.5 mg 100 mmu cells PO TIDWM #100 tabs 03/12/24 (100 million cell) tablet Allergies Allergy/AdvReac Type Severity Reaction Status Date / Time No Known Drug Allergies Allergy Verified 03/10/25 17:20 Review of Systems Status of ROS: Reports: 10 or more systems reviewed and unremarkable except as noted in History and below [facility] Medical History Health care directive on file ?Z78.9 - Other specified health status (ICD-10) Cholecystitis ?K81.9 - Cholecystitis, unspecified (ICD-10) Varicose veins of both lower extremities ?I83.93 - Asymptomatic varicose veins of bilateral lower extremities (ICD-10) Seborrheic dermatitis, unspecified ?L21.9 - Seborrheic dermatitis, unspecified (ICD-10) Sensorineural hearing loss, asymmetrical ?H90.3 - Sensorineural hearing loss, bilateral (ICD-10) Allergic rhinitis ?J30.9 - Allergic rhinitis, unspecified (ICD-10) Elevated cholesterol ?E78.00 - Pure hypercholesterolemia, unspecified (ICD-10) Diarrhea ?R19.7 - Diarrhea, unspecified (ICD-10) Colitis due to Clostridioides difficile ?A04.72 - Enterocolitis due to Clostridium difficile, not specified as recurrent (ICD-10) Surgical History S/P total knee arthroplasty (01/28/22) ?Z96.659 - Presence of unspecified artificial knee joint (ICD-10) Total knee replacement status (01/28/22) ?Z96.659 - Presence of unspecified artificial knee joint (ICD-10) History of cholecystectomy ?Z90.49 - Acquired absence of other specified parts of digestive tract (ICD-10) History of bunionectomy of both great toes ?Z98.890 - Other specified postprocedural states (ICD-10) S/P right knee arthroscopy (01/05/13) ?Z98.890 - Other specified postprocedural states (ICD-10) Status post laparoscopic appendectomy ?Z90.49 - Acquired absence of other specified parts of digestive tract (ICD-10) Family History Father Waldenstroms macroglobulinemia Mother Amyloidosis Social History What is your current living situation?: I presently have a place to live Problems where you live: no known problems Problems where you live details: N/A In the past 12 months, utilities in danger of being shut off: no In past 12 months, lack of transportation kept you from medical appts, meetings, work, or getting things needed for daily living: no In the past 12 mos, have been you worried that your food would run out before you had money to buy more?: never true In the past 12 mos, the food you bought just didn't last and you didn't have money to buy more?: never true Highest level of school completed/degree received: Associate degree: occupational, technical, vocational program Smoking Status: Former smoker What tobacco products do you use: cigarettes Years smoked: 18 Smoking quit date/years: >15 years ago Do you use any of these nicotine containing products: None Nicotine containing products detail: Quit smoking in 1985 Second hand tobacco smoke exposure: No How often do you have a drink containing alcohol: monthly or less Alcohol type: beer How many standard drinks containing alcohol do you have on a typical day: 1 or 2 How often do you have six or more drinks on one occasion: Never AUDIT-C Alcohol total score: 1 Non-prescribed substance use: denies use Caffeine: No How often does anyone, including family, friends and others, physically hurt you: never How often does anyone, including family, friends and others, insult or talk down to you: never How often does anyone, including family, friends and others, threaten you with harm: never How often does anyone, including family, friends and others, scream or curse at you: never Are you using contraception or practicing any form of control: No service: No Exam Narrative: Exam Narrative: Well-nourished well-developed patient in no acute distress. Alert and oriented. Answers questions appropriately. Mood and affect are appropriate. Thoughts are goal oriented and rational. No tangential or magical thinking noted. Patient speaks in full sentences without needing to catch her breath. Patient currently asymptomatic. HEENT: Normocephalic atraumatic. Pupils are equally round reactive to light. Extraocular muscles are intact. Conjunctivae are moist without any icterus noted. Moist mucous membranes. Posterior pharynx is normal. Neck is soft without any lymphadenopathy or thyromegaly. Cardiovascular: Heart is regular rate and rhythm S1 and S2 are present without any murmurs. Lungs: Clear to auscultation bilaterally no wheezes rhonchi or rales are appreciated. Patient takes deep breaths without any discomfort. Abdomen: Soft and nontender nondistended with normal bowel sounds. Extremities: Bilateral lower extremities are without edema. Skin: Well perfused without any obvious rashes. Strength is 5/5 of the upper and lower extremities. Reflexes are 2+ and symmetric at the knees. Cranial nerves 3-12 are normal. [id number] is normal. There is no nystagmus either horizontally or vertically. Gait is normal. Hallpike maneuver does not elicit symptoms. Normal HINTS exam Const: Vital Signs, click to edit/add: Vital Signs - 24 hr 03/10/25 17:22 Temperature 97.5 F L Pulse Rate [Pulse Oximeter] 80 Respiratory Rate 18 Blood Pressure [Ri t Upper Arm] 154/90 H Pulse Oximetry 98 Oxygen Delivery Me thod Room Air Course Course ED Course: EKG, read by me, shows normal sinus rhythm with a pulse of 69. She has normal DE, QTC and QRS intervals. Labs show anemia with a hemoglobin of 10.5. This is not new for the patient. There is no elevated white count. Platelet count is 756. This has been elevated in the past as high as above 600 in 2021. Chemistries are unremarkable. Normal glucose. LFTs are unremarkable. Troponin is normal. Normal CRP. Urine shows 2+ protein and 1+ ketones. Did proceed with a head CT given the patient's symptoms and age-this was unremarkable. While she was here she did receive 500 mL of normal saline and Zofran. She felt much better after treatment. Was requesting discharge at this time. Vital Signs Vital signs: Initial Vital Signs Temperature 97.5 F L 03/10/25 17:22 Temperature Source Temporal Artery Scan 03/10/25 17:22 Pulse Rate 80 03/10/25 17:22 Respiratory Rate 18 03/10/25 17:22 Blood Pressure 154/90 H 03/10/25 17:22 Blood Pressure Mean 111 H 03/10/25 17:22 Blood Pressure Position Sitting 03/10/25 17:22 Pulse Oximetry 98 03/10/25 17:22 Oxygen Delivery Method Room Air 03/10/25 17:22 Vital Signs Temperature 97.5 F L 03/10/25 17:22 Pulse Rate 80 03/10/25 17:22 Respiratory Rate 18 03/10/25 17:22 Blood Pressure 154/90 H 03/10/25 17:22 Pulse Oximetry 98 03/10/25 17:22 Oxygen Delivery Method Room Air 03/10/25 17:22 Temperature 97.5 F L 03/10/25 17:22 Pulse Rate 80 03/10/25 17:22 Respiratory Rate 18 03/10/25 17:22 Blood Pressure 154/90 H 03/10/25 17:22 Pulse Oximetry 98 03/10/25 17:22 Oxygen Delivery Method Room Air 03/10/25 17:22 Medications Administered Medications: Discontinued Medications Generic Name Dose Route Start Last Admin Trade Name Freq PRN Reason Stop Dose Admin Sodium Chloride 500 mls @ 500 mls/hr 03/10/25 18:11 03/10/25 19:29 0.9 % Sodium Chloride 500 Ml IV 03/10/25 19:10 Infused .Q1H ONE Infusion Ondansetron HCl 4 mg 03/10/25 18:11 03/10/25 18:24 Ondansetron 2 Mg/Ml Inj IVP 03/10/25 18:12 4 mg ONCE ONE Administration Medical Decision Making Lab Data Labs: Lab Results 03/10/25 03/10/25 Range/Units 17:59 18:04 WBC 6.41 (4.50-11.00) K/uL RBC 3.79 L (4.00-5.20) m/uL Hgb 10.5 L (12.0-16.0) gm/dL Hct 32.7 L (33.0-51.0) % MCV 86 (80-100) fL MCH 28 (26-34) pg MCHC 32 (32-36) gm/dL RDW Coeff of Robert 13.0 (11.5-15.5) % Plt Count 756 H (140-440) K/uL Neut % (Auto) 72.7 H (42.0-72.0) % Lymph % (Auto) 17.6 L (20-44) % [place] % (Auto) 7.8 (0.0-11.0) % Eos % (Auto) 1.4 (0.0-7.0) % Baso % (Auto) 0.3 (0.0-3.0) % Neut # (Auto) 4.70 (1.7-7.0) K/uL Lymph # (Auto) 1.10 (0.90-2.90) K/uL [place] # (Auto) 0.50 (0.00-0.90) K/UL Eos # (Auto) 0.09 (0.00-0.50) K/uL Baso # (Auto) 0.02 (0.00-0.30) K/uL Abs Immat Gran (auto) 0.01 (0.00-0.30) K/uL Imm/Tot Granulo (auto) 0.2 % Sodium 137 (135-149) mmol/L Potassium 4.0 (3.6-5.1) mmol/L Chloride 101 (96-114) mmol/L Carbon Dioxide 26 (20-32) mmol/L Anion Gap 10 (7-15) mEq/L BUN 14 (7-30) mg/dL Creatinine 1.0 (0.5-1.5) mg/dL Estimated GFR 59 ml/min Glucose 127 H (60-115) mg/dL Lactate 1.1 (0.5-1.9) mmol/L Calcium 9.1 (8.4-10.6) mg/dL Magnesium 2.1 (1.5-2.6) mg/dL Total Bilirubin 0.6 (0.1-1.5) mg/dL Direct Bilirubin 0.2 (0.0-0.5) mg/dL AST 36 H (12-35) U/L ALT 21 (4-35) U/L Alkaline Phosphatase 78 (40-150) U/L Troponin I < 0.01 (0.01-0.04) ng/mL POC Troponin I High Sensi 5.2 (2.9-13.0) pg/mL C-Reactive Protein < 0.5 L (0.5-1.0) mg/dL Total Protein 7.2 (6.0-8.3) g/dL Albumin 4.3 (3.3-5.0) g/dL Urine Color Yellow (Yellow) Urine Appearance Clear (Clear) Urine pH 6.5 (5.0-8.5) Ur Specific [place] 1.020 (1.000-1.030) Urine Protein 2+ A (Negative) Urine Glucose (UA) Negative (Negative) Urine Ketones 1+ A (Negative) Urine Blood Trace-intact A (Negative) Urine Nitrite Negative (Negative) Urine Bilirubin Negative (Negative) Urine Urobilinogen 0.2 (0.2-1.0) Ur Leukocyte Esterase Negative (Negative) Urine RBC 0-2 (0-2) Urine WBC 0-2 (0-5) Ur Squamous Epith Cells None (None-Few) Urine Bacteria None (None) Imaging Data CT scan - head: Attestation: I have reviewed the pertinent imaging results. Radiologist's impression: Technique: CT of the head without contrast. Coronal and sagittal reformats. Bone and soft tissue windows. Comparison: No prior studies available for comparison at this institution. Findings: No acute intracranial hemorrhage or extra-axial collection. No evidence of acute cortical infarction. No mass effect or midline shift. Normal cerebral volume. The ventricles are normal in size, shape and contour. There is normal nichols and white matter differentiation. Carotid siphon atherosclerosis. The orbital contents are normal. No calvarial fractures. Partially empty sella. No lytic or sclerotic osseous lesions within the calvarium or skull base. Scalp and other imaged soft tissue structures are normal. Mastoid air cells are clear. Paranasal sinuses are well aerated. Leftward deviation of the nasal septum. Impression: No acute intracranial abnormality. Discharge Plan Discharge Clinical Impression: Vertigo, Thrombocytosis, Anemia Patient Disposition: Home, Self-Care Condition: Stable Instructions: Vertigo (ED) Additional Instructions: Your platelet count was elevated today. We will send you home with a printout of your lab results. You should follow-up with your primary care provider at your convenience to discuss these results and any further testing at their discretion. Prescriptions: No Action atorvastatin 10 mg tablet 10 mg PO HS metronidazole 0.75 % gel 1 applic topical BID multivitamin Tablet 1 tab PO DAILY calcium citrate-vitamin D3 [Calcium Citrate + D] 315 mg-5 mcg (200 unit) tablet 1 tab PO DAILY Lactobacillus acidophilus 0.5 mg (100 million cell) Tablet 100 mmu cells PO TIDWM Qty: 100 0RF fluticasone propionate [24 Hour Allergy Relief] 50 mcg/actuation spray,suspension 1 spray intranasal DAILY Rx Instructions: administer into each nostril Follow Up/Referrals: Samantha Catalan DO [Primary Care Provider, Family Practice] Stand Alone Forms: MyHealth Info Instructions
[2025-03-10 18:06] LABS: Lactate* 1.1 mmol/L (0.5-1.9)
[2025-03-10 18:07] LABS: Appearance Urine Clear (Clear)
[2025-03-10 18:10] LABS: Hematocrit* 32.7 % (33.0-51.0); Hemoglobin* 10.5 gm/dL (12.0-16.0); Immature Granulocytes Abs Auto 0.01 K/uL (0.00-0.30); Immature Granulocytes Pct Auto 0.2 %; Lymphocytes Absolute Auto 1.10 K/uL (0.90-2.90); Mean Corpuscular HGB Conc 32 gm/dL (32-36); Mean Corpuscular Hemoglobin 28 pg (26-34); Mean Corpuscular Volume 86 fL (80-100); RDW Coefficient of Variation % 13.0 % (11.5-15.5); Red Blood Count* 3.79 m/uL (4.00-5.20); White Blood Count* 6.41 K/uL (4.50-11.00)
[2025-03-10 18:11] LABS: Slide Review Reflex No
[2025-03-10] MEDS: 0.9 % SODIUM CHLORIDE 500 ML 500 ML IV (18:24)
[2025-03-10] MEDS: ONDANSETRON 2 MG/ML inj 4 MG IVP (18:24)
--- OUTSIDE RECORDS SUMMARY | 2025-03-10 18:34 | XMS_ITS | Clinical Summary ---
Author Organization [facility] Address [address] [place] [address] Care Team Providers Care Environmental Marketing Representative Name Role Phone Manuel Madden MD Primary Care P rovider Allergies No known active allergies Medications MedicationSigDispense QuantityRefillsLast FilledStart DateEnd DateStatus CALCIUM CITRATE + TAB Indications:Routine gynecological ujqacluqkha023/04/2009ctive MULTIVITAMIN TAB Indications:Routine gynecological examinationtake 1 tablet by oral route once daily with mzsp528ctive cetirizine (ZYRTEC) 10 mg tablet Take 1 tablet by mouth once daily.ctive atorvastatin (LIPITOR) 10 mg tablet Indications:Hyperlipidemia, unspecified hyperlipidemia typeTake 1 Tablet (10 mg) by mouth once daily. 90 Tablet 5Active metroNIDAZOLE 0.75 % gel Indications:Rosacea, unspecifiedApply topically to affected area(s) two times daily. 45 g 5Active amoxicillin-clavulanate (AUGMENTIN) 875-125 mg tablet Indications:Bacterial sinusitisTake 1 Tablet by mouth two times daily with meals for 7 days. 14 Tablet Expired Active Problems ProblemNoted DateDiagnosed DateCKD (chronic kidney disease) stage 2, GFR 60-89 ml/min10/11/2024Primary Raynaud's /14/2025Rosacea, unspecified 10/11/2024Varicose veins of both lower zpaczmvczrz17/07/2018Seborrheic dermatitis, /28/2011Sensorineural hearing loss, asymmetrical 03/16/2008Subjective lygsydvb96/17/2008llergic rhinitis, cause unspecified 03/11/2007Other and unspecified uiigesjycaxvow07/25/2007 Resolved Problems ProblemNoted DateDiagnosed DateResolved WlavKdoobjzwsfsogu66/21/202306/ S/P total knee vokaxsdnzsqn71/31/202207/ Overview (10/11/2024): right total knee arthroplasty (01/28/2022, Dr. Sandoval) History of laparoscopic wdmkwnwxxqva85/16/202205/. difficile colitis /creen for colon zupcbx25 Overview (05/20/2008): Colonoscopy 05/2008- normal Colonoscopy in 10 years. Encounters DateTypeDepartmentCare JbgwTblkiwdmtgc12/21/2025 10:30 AM CSTAncillary Procedure [facility] [address] [place] [address] 02/18/20250315Ofbsjc13/16/9297Ffnqcs73/07/2025 10:25 AM CSTOffice Visit [facility] [address] [place] [address] Manuel Madden MD Sinus Problem (Ipratropium- possibly causing dry mouth /Ongoing since july- ) 02/04/20255639Riuqwr21/02/2025Travelfrom Last 3 Months Immunizations ImmunizationAdministration DatesNext DueCOVID-19 vaccine (Sonavation 30mcg/0.3mL) MD OSBALDOV08/02/2020,07/12/2020Influenza, High-dose Inactivated 01/05/2025,01/07/2024,01/10/2020,12/29/2018,12/13/2015Influenza, High-dose Quadrivalent Dsalopyryiu92/18/2023,01/15/2022Influenza, IIV3 (Age >=3 years) 01/02/2012,09/22/2009Influenza, XCS057/03/2018,12/30/2017,01/08/2017,12/14/2014, 12/28/2013Influenza, Inactivated AIIV4 (Age 65+ Years) Preserv Free02/21/2021, 01/10/2020Influenza, Inactivated IIV3 (Age 65+ Years) Preserv Free12/30/2017, 01/02/2017MMR10/14/2016,09/09/2016Pneumococcal Conj 20-valent (Prevnar 20) 4Pneumococcal Poly,23-Valent (Pneumovax)02/12/2017Pneumococcal conj 13- Valent (Prevnar 13)02/09/2016Td (Age >=7 Years)06/17/2003Tdap1, 09/12/2011Zoster (Zostavax-ZVL, live)06/26/2010 Family History Medical HistoryRelationNameCommentsCancerFatherWaldenstroms Macroglobulinemia 67 Cancer-breastMaternal Aunt 1HypertensionMaternal Aunt 2HypertensionMaternal Aunt 3Heart DiseaseMaternal Aunt 4Stents due to MIHeart DiseaseMaternal Aunt 5Other Motheramyloidosis, age 85HyperlipidemiaOtherMulitple auntsRelationNameStatus CommentsFatherDeceased (Age 68)cancer, ended with multiple myelomaMaternal Aunt 1Maternal Aunt 2Maternal Aunt 3Maternal Aunt 4Maternal Aunt 5MotherOther Social History Tobacco UseTypesPacks/DayYears UsedDateSmoking Tobacco: ZgqwytSrcusektol49 03/31/1967 - 03/31/1985Smokeless Tobacco: Never Tobacco Cessation:Counseling Given: Yes Alcohol UseStandard Drinks/WeekCommentsYes1.7 (1 standard drink = 0.6 oz pure alcohol)OCCASIONAL (1-2 drinks in a sitting, 1-2 times a month)PHQ-2AnswerDate RecordedPHQ-2 TOTAL IITFT826Social ConnectionsAnswerDate RecordedDo you often feel lonely or isolated from those around you?Financial Resource StrainAnswerDate RecordedDifficulty of Paying Living Expenses3 06/07/2024Difficulty of Paying Living ExpensesNot on file06/07/2024Food InsecurityAnswerDate RecordedDo you worry your food will run out before you are able to buy more?Transportation NeedsAnswerDate RecordedDoes lack of transportation keep you from medical appointments?Does lack of transportation keep you from work, meetings or getting things that you need?1 06/07/2024Housing StabilityAnswerDate RecordedWhat is your housing situation today?UtilitiesAnswerDate RecordedDo you have trouble paying for utilities (for example, heat, electricity, water, phone)? CommentsNoSex and Gender InformationValueDate RecordedSex Assigned at BirthNot on fileLegal SmoEtltma24/14/2013 5:24 AM CSTGender IdentityNot on fileSexual OrientationNot on fileOccupationIndustryJob Start DateJob End DateLPNNot on file Not on fileNot on file Obstetrics History GravidaParaTermPretermABIABSABEctopicMultipleLivingLive Lxdagg780RyxuDxpfqjcWS Total LaborLabor/2nd/9xeSktmzdTwjIjxwYvlnGHBTdeU6N0HooeLbfyXbngCnbb Last Filed Vital Signs Vital SignReadingTime TakenCommentsBlood Gxrabxmo040/7911 10:26 AM LOAN CLERK Iaofe802302/04/2025 10:26 AM BTPOxpgrunqjma77.5 ??C (97.7 ??F)08/29/2024 9:54 AM CDTRespiratory Vrnv148205/03/2023 12:50 PM CSTOxygen Dyfkdoxtqj776%02/04/2025 10:26 AM CSTInhaled Oxygen Concentration--Kavqyf17.7 kg (153 lb 9.6 oz) 02/04/2025 10:26 AM OEKWtuanz067 cm (5' 4.17)10/11/2024 7:35 AM CDTBody Mass Index26.22010/11/2024 7:35 AM CDT Plan of Treatment DateTypeDepartmentCare Team (Latest Contact Info)Lcepgrzykrp70/19/2026 9:40 AM CSTOffice Visit [facility] [address] [place] [address] Min May MD [address] [place] [address] Health MaintenanceDue DateLast DoneCommentsZoster (shingles) series for age 50+ (2 of 3)RSV vaccine for adults or (1 - 1-dose 75+ series)2024OVID-19 vaccine series (3 - season)2024 08/02/2020, 07/12/2020MI (ht and wt on same day) for age 18+10/11/2025 10/11/2024, 08/27/2024, 10/13/2023, Additional history existsDepression screening for age 12+, 10/13/2023, 10/13/2023, Additional history existsMedicare Wellness for age 65+, 10/13/2023, 09/18/2022, Additional history existsLipids for age 45-750, 09/18/2022, 08/13/2021, Additional history existsColonoscopy through age 75 , 11/01/2021, 11/01/2021, Additional history existsTetanus kueqdah59, 09/12/2011, 06/17/2003Hepatitis C screening for age 18-25Cuifiolhv32/03/2014DEXA/DXA scan for age 65+Qnxsaqgqm72/15/2024, 03/16/2018, 12/17/2012, Additional history existsPneumococcal series for age 50+ Jwehfnnnh08/15/2024, 02/12/2017, 02/09/2016Influenza HkibbyeUftfyvtnf08/08/2025, 01/07/2024, 02/21/2021, Additional history existsHepatitis B series for 19+Aged OutNo longer eligible based on patient's age to complete this topic Procedures Procedure NamePriorityDate/TimeAssociated DiagnosisCommentsCT SINUS WORoutine 02/18/2025 10:33 AM LOAN CLERK Chronic congestion of paranasal sinus XR DXA BONE DENSITY 2 SITES UFHPMPyeolzv86/15/2024 11:30 AM CDT Post-menopausal LIPID PANEL W REFLEX MEASURED FDVRoqabdd71/15/2024 10:20 AM CDT Hyperlipidemia, unspecified hyperlipidemia type COLONOSCOPY FNCCILXWDOOarvamz40/04/2022 9:35 AM CDT Positive FIT (fecal immunochemical test) ANTI XCFXoyqvpr12/03/2014 8:38 AM LOAN CLERK Need for hepatitis C screening test from Last 3 Months or Most Recently Relevant to Health Maintenance Results * CT SINUS WO (02/18/2025 10:33 AM LOAN CLERK)Anatomical RegionLateralityModalitySINUS Computed TomographySpecimen (Source)Anatomical Location / LateralityCollection Method / VolumeCollection TimeReceived Time02/18/2025 11:36 AM LOAN CLERK Narrative 02/18/2025 11:36 AM LOAN CLERK For Patients: As a result of the Cures Act, medical imaging exams and procedure reports are released immediately into your electronic medical record. You may view this report before your referring provider. If you have questions, please contact your health care provider. Indication: Chronic congestion of paranasal sinus Technique: 05/21/2021 Comparison: None available Findings: Frontal sinuses: Clear. Ethmoid sinuses: Clear. Maxillary sinuses: Clear. The maxillary sinus drainage pathways are patent on both sides. Sphenoid sinuses: Patent sphenoethmoidal recesses. Minimal mucosal thickening on the right. Nasal Cavity: S shaped curvature of the nasal septum. No nasal polyps. No stephanie bullosa. Mild degenerative changes at the temporomandibular joints. Mild generalized cortical atrophy. Impression: 1. Minimal mucosal thickening right sphenoid sinus. 2. S shaped curvature of the nasal septum. Please note that all CT scans at this facility use dose modulation, iterative reconstruction, and/or weight-based dosing when appropriate to reduce radiation dose to as low as reasonably achievable. Dictated by Sam Mathis MD @ 02/18/2025 11:36:25 AM (Electronically Signed) Procedure Note Sam Mathis MD - 02/18/2025 For Patients: As a result of the Cures Act, medical imagingexams and procedure reports are released immediately into your electronicmedical record. You may view this report before your referring provider.If you have questions, please contact your health care provider. Indication: Chronic congestion of paranasal sinus Technique: 05/21/2021 Comparison: None available Findings: Frontal sinuses: Clear. Ethmoid sinuses: Clear. Maxillary sinuses: Clear. The maxillary sinus drainage pathways are patenton both sides. Sphenoid sinuses: Patent sphenoethmoidal recesses. Minimal mucosalthickening on the right. Nasal Cavity: S shaped curvature of the nasal septum. No nasal polyps. Noconcha bullosa. Mild degenerative changes at the temporomandibular joints. Mildgeneralized cortical atrophy. Impression: 1. Minimal mucosal thickening right sphenoid sinus. 2. S shaped curvature of the nasal septum. Please note that all CT scans at this facility use dose modulation,iterative reconstruction, and/or weight-based dosing when appropriate toreduce radiation dose to as low as reasonably achievable. Dictated by Sam Mathis MD @ 02/18/2025 11:36:25 AM (Electronically Signed) Authorizing ProviderResult TypeResult StatusMicbarrow neurological institutel [facility] MDCT Final Result * XR DXA BONE DENSITY 2 SITES AXIAL (10/13/2023 11:30 AM CDT)Anatomical Region LateralityModalitySpine, HIPS, HIPL, HIPROtherSpecimen (Source)Anatomical Location / LateralityCollection Method / VolumeCollection TimeReceived Time Impressions 10/14/2023 2:08 PM CDT Normal bone density. RECOMMENDATIONS: The National Osteoporosis Foundation recommends pharmacologic treatment for patients with T-scores of -2.5 or less, patients with prior history of fragility fractures, or patients with 10-year probability of greater than 3% at hips or greater than 20% of suffering major osteoporotic fractures. Recommend continued optimization of calcium and vitamin D intake through dietary means and/or supplementation and regular exercise. Repeat scan recommended in 3-5 years. Jaclyn Cary PA-C [facility] 10/14/2023 ?? Narrative 10/14/2023 2:08 PM CDT For Patients: Results are automatically released to your [facility] account once available, in compliance with federal regulations. This means that you may see your results before your provider has had a chance to review them. Please allow 2-3 business days for your provider to comment on the results. XR DXA Bone Mineral Density (BMD) EXAM LOCATION: [facility] [address] [facility] [address] PATIENT NAME: Edith Cruz DATE OF : 1950 EXAM DATE: 10/13/2023 REQUESTING PROVIDER: Samantha Catalan, DO GENDER AT : female HEIGHT: 5' 3.47 (10/13/2023) WEIGHT: ??155 lb (10/13/2023) MENOPAUSAL STATUS: Postmenopausal RACE/ETHNICITY: White RISK FACTORS: Height Loss (2 inches or more), History of Fragility Fracture (at a major site), Smoking (prior), White Race, and Estrogen Therapy CURRENT MEDICATION FOR BONE LOSS: NONE INDICATION: Post-Menopause COMPARISON DATE(S): 2018 DXA scans are compared to prior studies for a patient only when the two (or more) studies were performed on the same scanner. It is not possible to compare data generated on one scanner to data from another because there are not standards in DXA equipment. This applies even if the two scanners are made by the same communications equipment installer. PROCEDURE: Dual-energy x-ray absorptiometry performed with routine technique. Reporting is completed in the form of a T-score. The T-score represents the standard deviation from peak bone mass based on young healthy adult. A Z-score is used for diagnosis in premenopausal women, and for men under the age of 50. FINDINGS: RESULT LUMBAR SPINE L1 - L4 BMD: 1.377 g/cm2 T-Score: + 1.6 Z-Score: + 3.2 Change from prior in 2018: ??Increase 3.5%. RESULTS FEMUR Left femoral neck BMD: 0.956 g/cm2 T-Score: - 0.6 Z-Score: + 1.2 Change from prior in 2018: ??Increase 0.8%. Right femoral neck BMD: 0.935 g/cm2 T-Score: - 0.7 Z-Score: + 1.0 Change from prior in 2018: ??Increase 3.0%. Left hip BMD: 1.037 g/cm2 T-Score: + 0.2 Z-Score: + 1.8 Change from prior in 2018: ??Increase 2.3%. Right hip BMD: 0.978 g/cm2 T-Score: - 0.2 Z-Score: + 1.3 Change from prior in 2018: ??Decrease 0.7%. WHO criteria: Normal: T-score at or above -1 SD Osteopenia: T-score between -1.1 and -2.4 SD Osteoporosis: T-score at or below -2.5 SD FRAX RISK CALCULATION (USED FOR OSTEOPENIA ONLY): 10-year probability of major osteoporotic fracture: 13.9%. 10-year probability of hip fracture: 1.6%. Authorizing ProviderResult TypeResult StatusTamara Debbie Detert DODEXAFinal Result * LIPID PANEL W REFLEX MEASURED LDL (10/13/2023 10:20 AM CDT)ComponentValueRef RangeTest MethodAnalysis TimePerformed AtPathologist Signature CHOLESTEROL,[id number] - 199 mg/dL10/13/2023 6:33 PM [facility]-CENTRAL LABORATORYComment: Cholesterol, Total Reference Ranges Desirable <200 mg/dL Borderline 200-239 mg/dL High >=240 mg/dL PJFYBNTRQUAZQ76<150 mg/dL10/13/2023 6:33 PM [facility]-CENTRAL LABORATORYHDL PKYJITLINTX84>40 mg/dL10/13/2023 6:33 PM [facility]-CENTRAL LABORATORYNON-HDL LKEGACZCVVK590<145 mg/dl10/13/2023 6:33 PM [facility]-CENTRAL LABORATORYCHOL/HDL RATIO3.20<4.50010/13/2023 6:33 PM [facility]-CENTRAL LABORATORYLDL HQBANUEDDGS498<=130 mg/dL10/13/2023 6:33 PM [facility]-CENTRAL LABORATORYVLDL LSJJZMLVZUI95<=30 mg/dL10/13/2023 6:33 PM [facility]-CENTRAL LABORATORYPROVIDER ORDERED CHVKERJAISAU27/ 6:33 PM CDTALNORTH MEMORIAL [facility]ALTH [facility]-CENTRAL LABORATORYSpecimen (Source)Anatomical Location / Laterality Collection Method / VolumeCollection TimeReceived TimeBloodBLOOD SPECIMEN / UnknownVenipuncture / Wdzlxhv5510/13/2023 10:20 AM CDT10/13/2023 10:17 AM CDT Narrative Authorizing ProviderResult TypeResult StatusTayi Catalan DOCHEMISTRYFinal ResultPerforming OrganizationAddressCity/State/ZIP CodePhone Number [facility] [address] [place] [address], [place] * COLONOSCOPY (11/01/2021 9:19 AM CDT)Specimen (Source)Anatomical Location / LateralityCollection Method / VolumeCollection TimeReceived Time11/01/2021 9:19 AM CDT Narrative Transcriptions Nate Stevens MD - 11/01/2021 11:26 AM CDT Patient Name: Edith Cruz Procedure Date: 11/01/2021 Gender: Female Date of : 1950 Admit Type: Outpatient Procedure: Colonoscopy Proceduralist: Nate Stevens MD , More Mena, RN (Nurse) Referring MD: Samantha Catalan Indications/Pre-Op Diagnosis: Last colonoscopy: May 2008, Positivefecal immunochemical test Medications: Fentanyl 100 micrograms IV, Midazolam 4 mgIV Procedure Description: The patient had risks, benefits and alternatives explained to andgave informed consent. The patient had a stable cardiopulmonary status and judged an adequate candidate for conscious sedation. The colonoscope was passed through the anus and advanced to thececum, identified by appendiceal orifice and ileocecal valve. Thecolonoscopy was performed without difficulty. The patient tolerated the procedure well. The quality of the bowel preparation was good. The ileocecal valve, appendiceal orifice, and rectum were photographed. Complications: No immediate complications. Estimated Blood Loss & Specimen: Estimated blood loss: none. Specimen collected - None Findings: The perianal and digital rectal examinations were normal. The colon (entire examined portion) was significantly redundant. The exam was otherwise without abnormality on direct and retroflexion views. Impressions/Post-Op Diagnosis: - Redundant colon. - The examination was otherwise normal on direct and retroflexionviews. - No specimens collected. Recommendation: - Patient has a contact number available for emergencies. The signsand symptoms of potential delayed complications were discussed with the patient. Return to normal activities tomorrow. Written discharge instructions were provided to the patient. - Resume previous diet. - Continue present medications. - No repeat colonoscopy due to current age (66 years or older), the absence of advanced adenomas and the absence of colonic polyps. Moderate Sedation: Moderate (conscious) sedation was administered by the endoscopy nurse and supervised by the endoscopist. The following parameters were monitored: oxygen saturation, heart rate, respiratory rate, blood pressure, adequacy of pulmonary ventilation and reponse to care. Please refer to the patient's medical record flowsheets and nursing notes for moderate sedation details. Total physician intraservice time was 24 minutes. Nate Stevens MD 11/01/2021 11:26:30 AM This report has been signed electronically. Note Initiated On: 11/01/2021 9:19 AM Procedure Code(s): --- Professional --- 95043, Colonoscopy, flexible; diagnostic, including collection of specimen(s) bybrushing or washing, when performed (separateprocedure) Diagnosis Code(s): --- Professional --- R19.5, Other fecal abnormalities Q43.8, Other specified congenitalmalformations of intestine CPT copyright 2020 [employer]. All rights reserved. The codes documented in this report are preliminary and upon unit aide tech reviewmay be revised to meet current compliance requirements. Scope In: 10:57:14 AM Scope Withdrawal Time 0 hours 6 minutes 18 seconds Scope Out: 11:19:39 AM Authorizing ProviderResult TypeResult StatusNate Apolinar Stevens MDPROCEDURE ORD Final Result * ANTI HCV [12634.2] (01/31/2014 8:38 AM LOAN CLERK)ComponentValueRef RangeTest Method Analysis TimePerformed AtPathologist SignatureHEPATITIS C ANTIBODYNon-Reactive Non-Luvhughc55/03/2014 1:52 PM CSTDICKEN[facility] Specimen (Source)Anatomical Location / LateralityCollection Method / Volume Collection TimeReceived TimeBlood specimen (specimen)BLOOD SPECIMEN / Unknown Venipuncture / Saqrdwm1201/31/2014 8:38 AM CST01/31/2014 8:38 AM LOAN CLERK Narrative [facility] - 01/31/2014 1:52 PM LOAN CLERK Antibodies to HCV not detected; does not exclude the possibility of exposure to HCV. Authorizing ProviderResult TypeResult StatusTagrettaa Debbie Detert DOSEND OUTSFinal ResultPerforming OrganizationAddressCity/State/ZIP CodePhone Number [facility] [address] [place] [address], from Last 3 Months or Most Recently Relevant to Health Maintenance Insurance Advance Directives TypeDate RecordedPatient RepresentativeExplanationHealthcare Fswmatlym38/28/2016 10:14 [facility] Care Teams Team MemberRelationshipSpecialtyStart DateEnd Date Manuel Madden MD [address] [place] [address] [facility] Hyevawdm69/7/25
[2025-03-10 18:40] LABS: Albumin* 4.3 g/dL (3.3-5.0); Chloride* 101 mmol/L (96-114)
[2025-03-10 18:41] LABS: Potassium* 4.0 mmol/L (3.6-5.1); Sodium* 137 mmol/L (135-149)
[2025-03-10 18:43] LABS: Blood Urea Nitrogen* 14 mg/dL (7-30); Creatinine* 1.0 mg/dL (0.5-1.5); Estimated Glomerular Filt Rate 59 ml/min
[2025-03-10 18:44] LABS: Alanine Aminotransferase* 21 U/L (4-35); Alkaline Phosphatase* 78 U/L (40-150); Anion Gap 10 mEq/L (7-15); Aspartate Amino Transferase* 36 U/L (12-35); Bilirubin Direct* 0.2 mg/dL (0.0-0.5); Bilirubin Total* 0.6 mg/dL (0.1-1.5); Calcium* 9.1 mg/dL (8.4-10.6); Carbon Dioxide* 26 mmol/L (20-32); Glucose* 127 mg/dL (60-115); Total Protein* 7.2 g/dL (6.0-8.3)
[2025-03-10 20:06] LABS: PCR FLU A Negative PCR FLU A (Negative); PCR FLU B Negative PCR FLU B (Negative); SARS PCR* Negative SARS-CoV-2 (Negative)
== END 2025-03-10 19:50 | disposition home or self-care (01) ==
PROVIDERS: Emergency Provider Family Medicine; PCP Family Medicine
DX: R42 Dizziness and giddiness (principal); D69.6 Thrombocytopenia, unspecified; D64.9 Anemia, unspecified
CPT/HCPCS: 36415; 70450; 80048; 80076; 81001; 83605; 83735; 84484; 85025; 86140; 87086; 87636; 96374; 99284; J2405; J7030

== ENCOUNTER 2025-03-12 14:15 | Outpatient (CLI) | payer BC, SELFPAY | END 2025-03-12 14:16 | disposition home or self-care (01) | LOC: NFLDREF 03-16 15:35 | DX: N30.01 Acute cystitis with hematuria (principal) | CPT/HCPCS: 87086 ==